=== PATIENT | male | born 1955 | race Caucasian/White ===

== ENCOUNTER 2021-10-03 12:55 | Emergency (ER) | payer OTHER, SELFPAY ==
--- NOTE | 2021-10-03 13:56 | PC.NURSE ---
pt eye feels completely fine now, signed refusal, left ER ambulatory, encouraged to come back as needed
== END 2021-10-03 14:05 | disposition left against medical advice (07) ==
DX: Z53.29 Procedure and treatment not carried out because of patient's decision for other reasons (principal)
CPT/HCPCS: 99199

== ENCOUNTER 2022-06-30 21:08 | Observation (INO) | payer MEDICARE, SELFPAY ==
[2022-06-30] VITALS (8 sets, daily range): BP systolic 131–169; BP diastolic 67–99; PULSE 69–84; RESP 18; TEMP 36.9; O2SAT 88–97; BMI 29.3
--- NOTE | 2022-06-30 21:51 | CRLHL7_ITS ---
For Patients: As a result of the Cures Act, medical imaging exams and procedure reports are released immediately into your electronic medical record. You may view this report before your referring provider. If you have questions, please contact your health care provider. INDICATION: Right upper quadrant pain, history gallbladder disease TECHNIQUE: Ultrasound abdomen limited. Sonographic images of the gallbladder and biliary tree were obtained using funk-scale and color Doppler images. COMPARISON: 06/09/2020 FINDINGS: The sensitivity and specificity of the exam are moderately limited by the patient`s body habitus and bowel gas. Liver: Visualization of the liver is limited by overlying bowel gas. Gallbladder: The neck of the gallbladder is not well demonstrated. No gallstones or sludge seen in the contracted lumen. The gallbladder wall is normal in appearance. No pericholecystic fluid is present. A sonographic Harris sign was reported. Common bile duct: 5 mm. No intrahepatic biliary ductal dilatation seen. Vascular: The aorta and IVC are not well visualized. The visualized portal vein is patent with normal anterograde flow. Right kidney: 10.4 cm. The pancreas is obscured by overlying bowel gas. IMPRESSION: 1. The gallbladder is contracted in appearance from recent meal. Dictated by Fish Quiroz MD @ 06/30/2022 11:29:23 PM Dictated by: Fish Quiroz MD @ 06/30/2022 23:30:18 (Electronically Signed)
[2022-06-30] MEDS: ONDANSETRON 2 MG/ML inj 4 MG IVP (22:09)
[2022-06-30] MEDS: HYDROmorphone 0.5 mg/0.5 ml inj IVP (22:09)
--- NOTE | 2022-06-30 22:17 | ED_ITS ---
HPI - General Adult General Chief complaint: Chest Pain Stated complaint: Chest pain Time Seen by Provider: 06/30/22 21:14 Source: patient Mode of arrival: ambulatory Limitations: no limitations History of Present Illness HPI narrative: 67-year-old male with no prior cardiac history presents the emergency department with epigastric area pain radiating up into the chest and back for the past 2 hours. Similar episode 4-6 years ago when he was told he had gallbladder disease. Thankfully he did not have any further episodes after that spell and never needed his gallbladder removed. Pain started at rest, comes in intense painful waves that last several minutes. It is accompanied by sweats. No palpitations, dizziness or dyspnea. There has been no vomiting but he does feel a little nauseated. He has no blood in his stools. He reports that he has had colonoscopies in the past and these are up-to-date no prior endoscopy. No prior history of GI surgeries. Has not tried any pain medication prior to coming to ED. I saw patient socially this morning at locally [employer] festivities and and he was well. He does not take any anticoagulants. He reports no recent changes in his medication. I have cared for him in the hospital in the past when he had sepsis secondary to the leg cellulitis. He reports that he has had this 3 times. Past medical history notable for hypertension, 3 prior episodes of sepsis. Home meds are chlorthalidone and losartan. No anticoagulants. No known drug allergies. Socially he is a local better in, nonsmoker denies significant alcohol intake or pertinent travel. ROS notable for the generalized, GI symptoms as above, otherwise denies times 12 systems. Related Data Home Medications Medication Instructions Recorded Confirmed chlorthalidone 25 mg tablet 25 mg PO DAILY 06/30/22 06/30/22 losartan 25 mg tablet 25 mg PO DAILY 06/30/22 06/30/22 Allergies Allergy/AdvReac Type Severity Reaction Status Date / Time No Known Drug Allergies Allergy Verified 06/30/22 21:18 Exam Const: Vital Signs, click to edit/add: Vital Signs - 24 hr 06/30/22 21:18 06/30/22 22:32 06/30/22 21:08 Temperature 98.5 F Pulse Rate Pulse Rate [Pulse Oximeter] 84 Respiratory Rate 18 Blood Pressure 139/91 H Blood Pressure [Ri ght Upper Arm] 169/99 H Pulse Oximetry 97 94 Oxygen Delivery Me thod Room Air 06/30/22 23:02 06/30/22 23:24 06/30/22 23:30 Temperature Pulse Rate 70 71 Pulse Rate [Pulse Oximeter] Respiratory Rate Blood Pressure 131/67 Blood Pressure [Ri ght Upper Arm] Pulse Oximetry 91 89 Oxygen Delivery Me thod 06/30/22 23:32 06/30/22 23:45 07/01/22 00:00 Temperature Pulse Rate 69 75 66 Pulse Rate [Pulse Oximeter] Respiratory Rate Blood Pressure 136/68 Blood Pressure [Ri ght Upper Arm] Pulse Oximetry 88 91 89 Oxygen Delivery Me thod 07/01/22 00:02 07/01/22 00:02 07/01/22 00:15 Temperature Pulse Rate 77 77 67 Pulse Rate [Pulse Oximeter] Respiratory Rate Blood Pressure 133/70 133/70 Blood Pressure [Ri ght Upper Arm] Pulse Oximetry 89 89 90 Oxygen Delivery Me thod Documenting provider has reviewed patient's vital signs: yes Common normals: no apparent distress General appearance: cooperative and well kempt Other: Appears uncomfortable, in pain. Normal mental status. HENMT: Common normals: normocephalic Head and scalp: normocephalic Face and sinus: normal facial exam Mouth: oral and palatal mucosa normal Throat: posterior oropharynx normal Eye: Common normals: conjunctivae normal General eye: normal appearance of both eyes Conjunctiva: conjunctiva(e) normal Neck & C-Spine: Common normals: no lymphadenopathy Chest: Common normals: palpation of chest normal Resp: Common normals: normal respiratory effort, no use of accessory muscles and clear to auscultation bilaterally Effort & inspection: able to speak in complete sentences Auscultation: clear to auscultation bilaterally Cardio: Common normals: regular rate, regular rhythm, S1 normal heart sound, S2 normal heart sound and no murmurs Rate: regular rate Rhythm: regular rhythm Heart sounds: S1 normal and S2 normal GI: Other: Abdomen slightly overweight but soft. Nondistended. Bowel sounds are normoactive in all 4 quadrants. Liver and spleen are not enlarged, no masses or hernia. He is tender to the epigastrium and under the right rib margin. No rebound tenderness or guarding. Extremity: Other: 2+ edema bilaterally. No stasis ulcers. Neuro: Speech: speech normal Motor exam: no tremor noted and no movement abnormalities noted Psych: Appearance: well kempt Activity/motor behavior: appropriate eye contact Thought content: normal thought content Insight: insight good Judgement: judgment good Skin: Common normals: no rashes or lesions noted General skin exam: no rashes or lesions noted Course Vital Signs Vital signs: Initial Vital Signs Respiratory Effort Normal, Spontaneous 06/30/22 21:08 Pulse Oximetry 94 06/30/22 21:08 Vital Signs Pulse Oximetry 94 06/30/22 21:08 Temperature 98.5 F 06/30/22 21:18 Pulse Rate 67 07/01/22 00:15 Respiratory Rate 18 06/30/22 21:18 Blood Pressure 133/70 07/01/22 00:02 Pulse Oximetry 90 07/01/22 00:15 Oxygen Delivery Method Room Air 06/30/22 21:18 Medical Decision Making MDM Narrative Medical decision making narrative: Differential diagnosis including cardiac disease, GERD, enteritis, more likely gallbladder disease. Cannot exclude esophagitis, pulmonary embolism, musculoskeletal etiology amongst others. I would like to start with an EKG, troponins, court recording monitor. Basic labs to look for gallbladder disease, pancreatitis, infection and inflammatory markers. Right upper quadrant ultrasound. Will be given Zofran and Dilaudid for pain and reassess. Update: Labs are reassuring. Abdominal ultrasound was unfortunately poor quality. It does show that though gallbladder wall is a little thickened but in the setting of it also being contracted, this is difficult to interpret. Lots of overlying bowel gas obscures good view of remaining structures. We elect to perform a CT. This does show some nonspecific inflammation. Patient is still having spasm right upper quadrant pain which is significantly lessened by the dilaudid. He has had no vomiting. Because of his degree of pain and persistence of symptoms without obvious etiology, I am recommending observation. Consider repeat ultrasound imaging in 6-8 hours if pain is not improved. Did not consult surgery get as no clear surgical indications at this time. Will defer to hospitalist team for further workup if patient fails to have improvement in symptoms. Repeat exam shows that patient remains tender with no guarding. Lab Data Lab results reviewed: Yes I reviewed the patient's lab results Lab results narrative: All very reassuring Labs: Lab Results 06/30/22 Range/Units 22:00 WBC 6.45 (4.50-11.00) K/uL RBC 4.51 (4.30-5.90) m/uL Hgb 14.5 (13.5-17.5) gm/dL Hct 42.1 (37.0-53.0) % MCV 93 (80-100) fL MCH 32 (26-34) pg MCHC 34 (32-36) gm/dL RDW Coeff of Karen 12.7 (11.5-15.5) % Plt Count 253 (140-440) K/uL Neut % (Auto) 54.4 (42.0-72.0) % Lymph % (Auto) 33.6 (20-44) % [place] % (Auto) 10.1 (0.0-11.0) % Eos % (Auto) 1.4 (0.0-7.0) % Baso % (Auto) 0.3 (0.0-3.0) % Neut # (Auto) 3.51 (1.7-7.0) K/uL Lymph # (Auto) 2.17 (0.90-2.90) K/uL [place] # (Auto) 0.70 (0.00-0.90) K/UL Eos # (Auto) 0.09 (0.00-0.50) K/uL Baso # (Auto) 0.02 (0.00-0.30) K/uL Sodium 136 (135-149) mmol/L Potassium 3.6 (3.6-5.1) mmol/L Chloride 105 (96-114) mmol/L Carbon Dioxide 23 (20-32) mmol/L BUN 13 (7-30) mg/dL Creatinine 1.0 (0.5-1.5) mg/dL Estimated Creat Clear 77.39 Estimated GFR 83 ml/min Glucose 128 H (60-115) mg/dL Calcium 8.2 L (8.4-10.6) mg/dL Total Bilirubin 0.4 (0.1-1.5) mg/dL Direct Bilirubin 0.2 (0.0-0.5) mg/dL AST 23 (12-35) U/L ALT 24 (4-50) U/L Alkaline Phosphatase 75 (40-150) U/L Troponin I 0.01 (0.01-0.04) ng/mL C-Reactive Protein 0.6 (0.5-1.0) mg/dL Total Protein 7.2 (6.0-8.3) g/dL Albumin 3.7 (3.3-5.0) g/dL Lipase 87 (23-300) U/L POC Troponin I 0.01 (0.01-0.04) ng/ml Imaging Data Abdominal ultrasound: Attestation: I have reviewed the pertinent imaging results. My impression: Unfortunately very poor quality despite good knock up assembler technique. Lots of overlying gas. Gallbladder is really contracted and not sure that this accurately estimates his wall thickness. Because of this I elect to do a CT. Radiologist's impression: IMPRESSION: 1. The gallbladder is contracted in appearance from recent meal. CT scan - abdomen: Attestation: I have reviewed the pertinent imaging results. Radiologist's impression: IMPRESSIONS: 1. Smooth interlobular septal thickening is present in both lung bases and likely due to basilar interstitial edema. 2. Mild ground-glass infiltration of the mesenteric root is present without significant interval change. This is nonspecific and can be seen with edema, mesenteric panniculitis, or prior treated lymphoma. Clinical correlation is needed. ECG Data Attestation: I personally reviewed and interpreted this ECG as follows: Prior ECG tracings: available for review (Comparison 10/06/2018) Interpretation: Sinus rhythm with a rate of 91 with an incomplete right bundle-branch block is unchanged from 2019. Essentially normal axis with 1 PVC present. No obvious signs of ischemia. Discharge Plan Discharge Prescriptions: No Action chlorthalidone 25 mg tablet 25 mg PO DAILY losartan 25 mg tablet 25 mg PO DAILY Follow Up/Referrals: Provider,Not a Local [Primary Care Provider] -
[2022-06-30 22:20] LABS: Basophils Absolute Auto 0.02 K/uL (0.00-0.30); Basophils Percent Auto 0.3 % (0.0-3.0); Eosinophils Absolute Auto 0.09 K/uL (0.00-0.50); Eosinophils Percent Auto 1.4 % (0.0-7.0); Hematocrit 42.1 % (37.0-53.0); Hemoglobin* 14.5 gm/dL (13.5-17.5); Immature Granulocytes Abs Auto 0.01 K/uL (0.00-0.30); Immature Granulocytes Pct Auto 0.2 %; Lymphocytes Absolute Auto 2.17 K/uL (0.90-2.90); Lymphocytes Percent Auto 33.6 % (20-44); Mean Corpuscular HGB Conc 34 gm/dL (32-36); Mean Corpuscular Hemoglobin 32 pg (26-34); Mean Corpuscular Volume 93 fL (80-100); Monocytes Percent Auto 10.1 % (0.0-11.0); Neutrophils Absolute Auto 3.51 K/uL (1.7-7.0); Neutrophils Percent Auto 54.4 % (42.0-72.0); Platelet Count* 253 K/uL (140-440); RDW Coefficient of Variation % 12.7 % (11.5-15.5); Red Blood Count 4.51 m/uL (4.30-5.90); White Blood Count* 6.45 K/uL (4.50-11.00)
[2022-06-30 22:24] LABS: Slide Review Reflex No
[2022-06-30 22:29] LABS: Troponin, Point-of-Care* 0.01 ng/ml (0.01-0.04)
[2022-06-30 22:34] LABS: Albumin* 3.7 g/dL (3.3-5.0); Chloride* 105 mmol/L (96-114)
[2022-06-30 22:35] LABS: Potassium* 3.6 mmol/L (3.6-5.1); Sodium* 136 mmol/L (135-149)
[2022-06-30 22:37] LABS: Carbon Dioxide* 23 mmol/L (20-32); Est. Creatinine Clearance* 77.39; Estimated Glomerular Filt Rate 83 ml/min
[2022-06-30 22:38] LABS: Alanine Aminotransferase* 24 U/L (4-50); Alkaline Phosphatase* 75 U/L (40-150); Aspartate Amino Transferase* 23 U/L (12-35); Bilirubin Direct* 0.2 mg/dL (0.0-0.5); Bilirubin Total* 0.4 mg/dL (0.1-1.5); Blood Urea Nitrogen* 13 mg/dL (7-30); Calcium* 8.2 mg/dL (8.4-10.6); Glucose* 128 mg/dL (60-115); Lipase* 87 U/L (23-300); Total Protein* 7.2 g/dL (6.0-8.3)
[2022-06-30 22:41] LABS: C Reactive Protein* 0.6 mg/dL (0.5-1.0)
[2022-06-30 22:49] LABS: Troponin I* 0.01 ng/mL (0.01-0.04)
--- NOTE | 2022-06-30 22:49 | CRLHL7_ITS ---
For Patients: As a result of the Century Cures Act, medical imaging exams and procedure reports are released immediately into your electronic medical record. You may view this report before your referring provider. If you have questions, please contact your health care provider. INDICATION: Upper abdominal, lower chest pain TECHNIQUE: CT chest, abdomen, and pelvis with i.v. contrast during the venous phase. Coronal and sagittal reformats were obtained. CONTRAST: 100 mL Isovue 370 COMPARISON: 01/23/2017, 08/09/2020 FINDINGS: CHEST: Cardiovascular: The heart has an unremarkable appearance and size. Moderate calcifications of the mitral valve annulus are present. This can be associated with coronary artery disease. The pulmonary arteries are unremarkable in appearance. No sign of aneurysm or dissection in the thoracic aorta. Mediastinum: No mass or adenopathy seen. Lung: Smooth interlobular septal thickening is present in both lung bases and likely due to basilar interstitial edema. Pleura and pericardium: No sign of pleural effusion seen. No significant pericardial effusion is present. Chest wall and axilla: No mass or adenopathy seen. Bone: Unremarkable for age. No acute osseous injuries seen. ABDOMEN/PELVIS: Liver: Unremarkable. Spleen: Unremarkable. Pancreas: Unremarkable. Gallbladder: Unremarkable. Kidney: Unremarkable. No kidney or ureteral stones or obstruction seen. Adrenal: Unremarkable. Bowel: Fundoplication surgery is noted at the GE junction. The appendix is normal in appearance and size. Vascular: Unremarkable. Lymph: Small mesenteric lymph nodes are present measuring up to 7 mm. Peritoneum: Unremarkable. Mild ground-glass infiltration of the mesenteric root is present without significant interval change. No pneumoperitoneum is seen. No significant ascites is noted. Pelvis: Unremarkable. Soft tissue: Unremarkable. Bone: Unremarkable for age. No acute osseous injuries seen. IMPRESSIONS: 1. Smooth interlobular septal thickening is present in both lung bases and likely due to basilar interstitial edema. 2. Mild ground-glass infiltration of the mesenteric root is present without significant interval change. This is nonspecific and can be seen with edema, mesenteric panniculitis, or prior treated lymphoma. Clinical correlation is needed. Dictated by Fish Quiroz MD @ 07/01/2022 12:01:52 AM Please note that all CT scans at this facility use dose modulation, iterative reconstruction, and/or weight-based dosing when appropriate to reduce radiation dose to as low as reasonably achievable. Dictated by: Fish Quiroz MD @ 07/01/2022 00:01:58 (Electronically Signed)
[2022-07-01] VITALS (12 sets, daily range): BP systolic 126–157; BP diastolic 62–86; PULSE 62–79; RESP 16; TEMP 36.6–36.7; O2SAT 89–97; BMI 32.6
[2022-07-01 01:09] LABS: SARS PCR* Negative SARS-CoV-2 (Negative)
--- NOTE | 2022-07-01 02:11 | P.IMCN_ITS ---
Date of Consult Consult date: 07/01/22 Primary Care Provider: Not a Local Provider Consult Narrative N[facility]ative[facility] AD[facility] SU[facility] NOTE eHospitalist was contacted by Dr. Price with request of admission support. Chief complaint: Chest pain HPI: The patient reports that about 6 years ago he had chest pain and was evaluated in the ED and it turned out that it was a gallbladder issue. He was told that if he continued to have problem he would need to have his gallbladder removed. However he never had any other problems until today when he presented with a similar type pain. He describes this chest pain however with palpation of his abdomen he has right upper quadrant pain. He states the pain felt like something was on my chest and it feels just as the pain he had 6 years ago. It actually was better if he stood up and sitting down made the pain worse. It was severe resulting in diaphoresis because of the degree of pain. Review of systems other than mentioned above is negative. Review of Systems Status of ROS: Reports: 10 or more systems reviewed and unremarkable except as noted in History and below PFSH PFS Social History Highest level of school completed/degree received: some college, no degree Smoking Status: Never smoker How often do you have a drink containing alcohol: 4 or more times a week Alcohol type: beer Alcohol type details: 1 case a beer a week How many standard drinks containing alcohol do you have on a typical day: 3 or 4 How often do you have six or more drinks on one occasion: Never AUDIT-C Alcohol total score: 5 Non-prescribed substance use: denies use Meds Home Medications and Allergies Home Medications Medication Instructions Recorded Confirmed Type chlorthalidone 25 mg tablet 25 mg PO DAILY 06/30/22 06/30/22 History losartan 25 mg tablet 25 mg PO DAILY 06/30/22 06/30/22 History Allergies Allergy/AdvReac Type Severity Reaction Status Date / Time No Known Drug Allergies Allergy Verified 06/30/22 21:18 Exam Narrative: Exam Narrative: Exam (performed via interactive video with assistance of bedside nurse): General: Alert, cooperative, no acute distress HEENT: Oral mucosa pink and moist without erythema, dentures Lungs: Clear to auscultation bilaterally without crackle or wheeze CV: Regular rate and rhythm without loud murmur rub or gallop Abd: Does complain of pain with palpation in right upper quadrant done by bedside nurse Ext: 1-2+ bilateral pedal edema Skin: No rashes, bruises or lesions appreciated on gross visualization of exposed skin Neuro: Alert, oriented x 3. CN III -VII, XI, XII grossly intact, moves all extremities without any significant focal deficit appreciated by nurse Const: Vital Signs, click to edit/add: Vital Signs - 24 hr 06/30/22 21:18 06/30/22 22:32 06/30/22 21:08 Temperature 98.5 F Pulse Rate Pulse Rate [Pulse Oximeter] 84 Respiratory Rate 18 Blood Pressure 139/91 H Blood Pressure [Le ft Arm] Blood Pressure [Ri ght Upper Arm] 169/99 H Pulse Oximetry 97 94 Oxygen Delivery Me thod Room Air 06/30/22 23:02 06/30/22 23:24 06/30/22 23:30 Temperature Pulse Rate 70 71 Pulse Rate [Pulse Oximeter] Respiratory Rate Blood Pressure 131/67 Blood Pressure [Le ft Arm] Blood Pressure [Ri ght Upper Arm] Pulse Oximetry 91 89 Oxygen Delivery Me thod 06/30/22 23:32 06/30/22 23:45 07/01/22 00:00 Temperature Pulse Rate 69 75 66 Pulse Rate [Pulse Oximeter] Respiratory Rate Blood Pressure 136/68 Blood Pressure [Le ft Arm] Blood Pressure [Ri ght Upper Arm] Pulse Oximetry 88 91 89 Oxygen Delivery Me thod 07/01/22 00:02 07/01/22 00:02 07/01/22 00:15 Temperature Pulse Rate 77 77 67 Pulse Rate [Pulse Oximeter] Respiratory Rate Blood Pressure 133/70 133/70 Blood Pressure [Le ft Arm] Blood Pressure [Ri ght Upper Arm] Pulse Oximetry 89 89 90 Oxygen Delivery Me thod 07/01/22 01:12 07/01/22 00:34 07/01/22 01:02 Temperature 98.0 F Pulse Rate 79 75 Pulse Rate [Pulse Oximeter] 74 Respiratory Rate 16 16 16 Blood Pressure 154/73 H 126/62 Blood Pressure [Le ft Arm] Blood Pressure [Ri ght Upper Arm] 126/62 Pulse Oximetry 97 94 89 Oxygen Delivery Me thod Room Air 07/01/22 01:22 07/01/22 01:32 07/01/22 01:32 Temperature 98.0 F 97.8 F Pulse Rate Pulse Rate [Pulse Oximeter] 74 Respiratory Rate 16 16 16 Blood Pressure Blood Pressure [Le ft Arm] 157/77 H Blood Pressure [Ri ght Upper Arm] 126/62 Pulse Oximetry 93 93 Oxygen Delivery Me thod Room Air Room Air Labs Labs: Short CBC 06/30/22 Range/Units 22:00 WBC 6.45 (4.50-11.00) K/uL Hgb 14.5 (13.5-17.5) gm/dL Hct 42.1 (37.0-53.0) % Plt Count 253 (140-440) K/uL BMP 06/30/22 22:00 Sodium 136 Potassium 3.6 Chloride 105 Carbon Dioxide 23 BUN 13 Creatinine 1.0 Glucose 128 H Calcium 8.2 L Cardiac Enzymes 06/30/22 Range/Units 22:00 Troponin I 0.01 (0.01-0.04) ng/mL Liver Function 06/30/22 Range/Units 22:00 Total Bilirubin 0.4 (0.1-1.5) mg/dL Direct Bilirubin 0.2 (0.0-0.5) mg/dL AST 23 (12-35) U/L ALT 24 (4-50) U/L Alkaline Phosphatase 75 (40-150) U/L Albumin 3.7 (3.3-5.0) g/dL Assessment and Plan Assessment and plan (1) Biliary colic: Status: Acute Plan Recent lab/abdominal ultrasound/CT scan of abdomen pelvis: Reviewed see EMR for details EKG: Per my interpretation showed sinus rhythm Assessment and Plan: 1. Right upper quadrant pain-concern for biliary colic versus cholecystitis. Keep n.p.o. for now, pain control with narcotics. Will leave for rounding provider to decide whether right upper quadrant ultrasound should be repeated since this study was limited in its assessment. 2. Hypertension-continue losartan. While n.p.o. giving IV fluids however consi naveed the addition of Lasix instead of chlorthalidone once oral intake resumed, given the extent of lower extremity edema. 3. DVT prophylaxis-Lovenox 4. CODE STATUS DNR/DNI discussed with patient Chart review was performed as well as evaluation of the patient via video. Thank you for involving ehospitalist. Please contact [phone] if further assistance is needed.
[2022-07-01] MEDS: 0.9 % SODIUM CHLORIDE 1000 ml 1,000 ML 125 ML IV ×2 (02:53→10:08)
--- NOTE | 2022-07-01 06:40 | PC.NURSE ---
pt to floor at 0115. Indep in room. NPO. Pleasant and cooperative. Pt states his pain in his RUQ feels like a constant pressure and almost gives him the urge to have to cough. Tenderness in RUQ. 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 VSS. Tele = NSR.
[2022-07-01 07:30] LABS: Basophils Absolute Auto 0.02 K/uL (0.00-0.30); Basophils Percent Auto 0.3 % (0.0-3.0); Eosinophils Absolute Auto 0.03 K/uL (0.00-0.50); Eosinophils Percent Auto 0.4 % (0.0-7.0); Hematocrit 43.5 % (37.0-53.0); Hemoglobin* 14.8 gm/dL (13.5-17.5); Immature Granulocytes Abs Auto 0.01 K/uL (0.00-0.30); Immature Granulocytes Pct Auto 0.1 %; Lymphocytes Absolute Auto 2.12 K/uL (0.90-2.90); Mean Corpuscular HGB Conc 34 gm/dL (32-36); Mean Corpuscular Hemoglobin 32 pg (26-34); Mean Corpuscular Volume 94 fL (80-100); Monocytes Percent Auto 8.3 % (0.0-11.0); Neutrophils Absolute Auto 4.76 K/uL (1.7-7.0); Neutrophils Percent Auto 62.9 % (42.0-72.0); Platelet Count* 250 K/uL (140-440); RDW Coefficient of Variation % 12.9 % (11.5-15.5); Red Blood Count 4.61 m/uL (4.30-5.90); Slide Review Reflex No; White Blood Count* 7.57 K/uL (4.50-11.00)
--- NOTE | 2022-07-01 08:01 | P.IMHP_ITS ---
Hospitalist- H&P: HPI History of Present Illness Date Seen: 07/01/22 Chief complaint: Chest pain Narrative: Dawson Blanco is a 67 year old male who presented to the ED last night with severe epigastric pain that radiated into his RUQ. He described discomfort like a brick on his chest, accompanied by intermittent diaphoresis. He had no difficulty breathing (although noted feeling more discomfort with breathing while sitting and laying down, felt better when standing), no radiation of pain into left chest. No significant nausea, vomiting, or diarrhea. He had a similar episode years ago, and was told that at some point he would need his gallbladder out. ER course and findings: - reassuring labs, negative troponin. No acute findings on EKG - gallbladder contracted on ultrasound, CT findings below - given patient's discomfort and history, he was admitted by [facility]-hospitalist overnight, kept NPO, and plan was to repeat ultrasound this morning When I see patient this morning, he continues to have pain in his epigastric region and right upper quadrant, intermittent in improved from admission. He has a mild cough but no other breathing complaints. His LFTs this morning remain normal, his troponin is 2.78. [facility] Medical History (Updated 07/01/22 @ 12:27 by Radha Giron MD) Essential hypertension ?I10 - Essential (primary) hypertension (ICD-10) History of DVT (deep vein thrombosis) ?Z86.718 - Personal history of other venous thrombosis and embolism (ICD-10) Hyperlipidemia ?E78.5 - Hyperlipidemia, unspecified (ICD-10) Surgical History (Updated 07/01/22 @ 12:22 by Radha Giron MD) History of total knee arthroplasty ?Z96.659 - Presence of unspecified artificial knee joint (ICD-10) Social History (Updated 07/01/22 @ 12:23 by Radha Giron MD) Narrative: Patient lives on his son Mark's farm and is retired. Mark would be medical decision maker if needed. He requests DNR/DNI status. He is a never smoker, drinks >10 alcoholic beverages per week, primarily on the weekends. No history of withdrawal. Highest level of school completed/degree received: some college, no degree Smoking Status: Never smoker How often do you have a drink containing alcohol: 4 or more times a week Alcohol type: beer Alcohol type details: 1 case a beer a week How many standard drinks containing alcohol do you have on a typical day: 3 or 4 How often do you have six or more drinks on one occasion: Never AUDIT-C Alcohol total score: 5 Non-prescribed substance use: denies use Meds Home Medications and Allergies Home Medications Medication Instructions Recorded Confirmed Type chlorthalidone 25 mg tablet 25 mg PO DAILY 06/30/22 06/30/22 History losartan 25 mg tablet 25 mg PO DAILY 06/30/22 06/30/22 History Allergies Allergy/AdvReac Type Severity Reaction Status Date / Time No Known Drug Allergies Allergy Verified 06/30/22 21:18 Exam Narrative: Exam Narrative: GEN: Alert and oriented, sitting comfortably in bed and nontoxic in appearance HEENT: Normal external ears, EOMIs bilaterally, no scleral icterus CV: RRR, No concerning murmurs, rubs, or gallops R: LCTA bilaterally without concerning wheezing, fine bibasilar crackles Ab: Soft, no significant tenderness to palpation, + Harris's sign Ext: wwp, no concerning edema Skin: No concerning skin lesions or rashes on exposed skin Neuro: Nonfocal Psych: Appropriate Const: Vital Signs, click to edit/add: Vital Signs - 24 hr 06/30/22 21:18 06/30/22 22:32 06/30/22 21:08 Temperature 98.5 F Pulse Rate Pulse Rate [Pulse Oximeter] 84 Respiratory Rate 18 Blood Pressure 139/91 H Blood Pressure [Le ft Arm] Blood Pressure [Ri ght Upper Arm] 169/99 H Pulse Oximetry 97 94 Oxygen Delivery Me thod Room Air 06/30/22 23:02 06/30/22 23:24 06/30/22 23:30 Temperature Pulse Rate 70 71 Pulse Rate [Pulse Oximeter] Respiratory Rate Blood Pressure 131/67 Blood Pressure [Le ft Arm] Blood Pressure [Ri ght Upper Arm] Pulse Oximetry 91 89 Oxygen Delivery Me thod 06/30/22 23:32 06/30/22 23:45 07/01/22 00:00 Temperature Pulse Rate 69 75 66 Pulse Rate [Pulse Oximeter] Respiratory Rate Blood Pressure 136/68 Blood Pressure [Le ft Arm] Blood Pressure [Ri ght Upper Arm] Pulse Oximetry 88 91 89 Oxygen Delivery Fl thod 07/01/22 00:02 07/01/22 00:02 07/01/22 00:15 Temperature Pulse Rate 77 77 67 Pulse Rate [Pulse Oximeter] Respiratory Rate Blood Pressure 133/70 133/70 Blood Pressure [Le ft Arm] Blood Pressure [Ri ght Upper Arm] Pulse Oximetry 89 89 90 Oxygen Delivery Me thod 07/01/22 01:12 07/01/22 00:34 07/01/22 01:02 Temperature 98.0 F Pulse Rate 79 75 Pulse Rate [Pulse Oximeter] 74 Respiratory Rate 16 16 16 Blood Pressure 154/73 H 126/62 Blood Pressure [Le ft Arm] Blood Pressure [Ri ght Upper Arm] 126/62 Pulse Oximetry 97 94 89 Oxygen Delivery Me thod Room Air 07/01/22 01:22 07/01/22 01:32 07/01/22 01:32 Temperature 98.0 F 97.8 F Pulse Rate Pulse Rate [Pulse Oximeter] 74 Respiratory Rate 16 16 16 Blood Pressure Blood Pressure [Le ft Arm] 157/77 H Blood Pressure [Ri ght Upper Arm] 126/62 Pulse Oximetry 93 93 Oxygen Delivery Fl thod Room Air Room Air 07/01/22 03:00 07/01/22 03:03 Temperature Pulse Rate 64 Pulse Rate [Pulse Oximeter] 75 Respiratory Rate 16 Blood Pressure Blood Pressure [Le ft Arm] 140/71 H Blood Pressure [Ri ght Upper Arm] Pulse Oximetry 93 Oxygen Delivery Me thod Room Air Hospitalist - H&P: Result Labs Labs: Short CBC 06/30/22 07/01/22 Range/Units 22:00 07:18 WBC 6.45 7.57 (4.50-11.00) K/uL Hgb 14.5 14.8 (13.5-17.5) gm/dL Hct 42.1 43.5 (37.0-53.0) % Plt Count 253 250 (140-440) K/uL BMP 06/30/22 22:00 Sodium 136 Potassium 3.6 Chloride 105 Carbon Dioxide 23 BUN 13 Creatinine 1.0 Glucose 128 H Calcium 8.2 L Cardiac Enzymes 06/30/22 Range/Units 22:00 Troponin I 0.01 (0.01-0.04) ng/mL Liver Function 06/30/22 Range/Units 22:00 Total Bilirubin 0.4 (0.1-1.5) mg/dL Direct Bilirubin 0.2 (0.0-0.5) mg/dL AST 23 (12-35) U/L ALT 24 (4-50) U/L Alkaline Phosphatase 75 (40-150) U/L Albumin 3.7 (3.3-5.0) g/dL INDICATION: Upper abdominal, lower chest pain TECHNIQUE: CT chest, abdomen, and pelvis with i.v. contrast during the venous phase. Coronal and sagittal reformats were obtained. CONTRAST: 100 mL Isovue 370 COMPARISON: 01/23/2017, 08/09/2020 FINDINGS: CHEST: Cardiovascular: The heart has an unremarkable appearance and size. Moderate calcifications of the mitral valve annulus are present. This can be associated with coronary artery disease. The pulmonary arteries are unremarkable in appearance. No sign of aneurysm or dissection in the thoracic aorta. Mediastinum: No mass or adenopathy seen. Lung: Smooth interlobular septal thickening is present in both lung bases and likely due to basilar interstitial edema. Pleura and pericardium: No sign of pleural effusion seen. No significant pericardial effusion is present. Chest wall and axilla: No mass or adenopathy seen. Bone: Unremarkable for age. No acute osseous injuries seen. ABDOMEN/PELVIS: Liver: Unremarkable. Spleen: Unremarkable. Pancreas: Unremarkable. Gallbladder: Unremarkable. Kidney: Unremarkable. No kidney or ureteral stones or obstruction seen. Adrenal: Unremarkable. Bowel: Fundoplication surgery is noted at the GE junction. The appendix is normal in appearance and size. Vascular: Unremarkable. Lymph: Small mesenteric lymph nodes are present measuring up to 7 mm. Peritoneum: Unremarkable. Mild ground-glass infiltration of the mesenteric root is present without significant interval change. No pneumoperitoneum is seen. No significant ascites is noted. Pelvis: Unremarkable. Soft tissue: Unremarkable. Bone: Unremarkable for age. No acute osseous injuries seen. IMPRESSIONS: 1. Smooth interlobular septal thickening is present in both lung bases and likely due to basilar interstitial edema. 2. Mild ground-glass infiltration of the mesenteric root is present without significant interval change. This is nonspecific and can be seen with edema, mesenteric panniculitis, or prior treated lymphoma. Clinical correlation is needed. Dictated by Fish Quiroz MD @ 07/01/2022 12:01:52 AM ULTRAOUND COMPARISON: 06/09/2020 FINDINGS: The sensitivity and specificity of the exam are moderately limited by the patient`s body habitus and bowel gas. Liver: Visualization of the liver is limited by overlying bowel gas. Gallbladder: The neck of the gallbladder is not well demonstrated. No gallstones or sludge seen in the contracted lumen. The gallbladder wall is normal in appearance. No pericholecystic fluid is present. A sonographic Harris sign was reported. Common bile duct: 5 mm. No intrahepatic biliary ductal dilatation seen. Vascular: The aorta and IVC are not well visualized. The visualized portal vein is patent with normal anterograde flow. Right kidney: 10.4 cm. The pancreas is obscured by overlying bowel gas. IMPRESSION: 1. The gallbladder is contracted in appearance from recent meal. Dictated by Fish Quiroz MD @ 06/30/2022 11:29:23 PM Assessment and Plan Assessment and plan (1) Elevated troponin: Problem comment: - significant elevation from admission - repeat EKG obtained this morning; no significant ST elevation, mild ST depressions in V4 through V6 - given patient's symptomatology, history recommend transfer to tertiary care center with Cardiology capabilities. Patient is agreeable - discussed the case with Dr. De La Garza, hospitalist at [place], who agrees to accept patient in transfer Status: Acute (2) Biliary colic: Problem comment: - likely still contributing to symptoms; LFTs this morning are still wnl and we were unable to repeat ultrasound given need for transfer - outpatient f/u vs definitive management at [place] Status: Acute (3) Essential hypertension: Status: Acute (4) Hyperlipidemia: Status: Acute Plan - transferred to [facility] by ALS ambulance 07/01 - Please note that this document serves as H&P and discharge summary
[2022-07-01 08:04] LABS: Alanine Aminotransferase* 25 U/L (4-50); Albumin* 3.7 g/dL (3.3-5.0); Alkaline Phosphatase* 76 U/L (40-150); Aspartate Amino Transferase* 49 U/L (12-35); Bilirubin Direct* 0.2 mg/dL (0.0-0.5); Bilirubin Total* 0.8 mg/dL (0.1-1.5); Total Protein* 7.1 g/dL (6.0-8.3)
[2022-07-01 08:06] LABS: Troponin I* 2.78 ng/mL (0.01-0.04)
[2022-07-01] MEDS: LOSARTAN POTASSIUM 50 MG TABLET 25 MG PO (09:24)
[2022-07-01] MEDS: ASPIRIN EC 325 MG TABLET PO (09:24)
[2022-07-01] MEDS: SODIUM CHLORIDE 0.9 % (FLUSH) 10 ML SYRINGE 5 ML IVF (09:26)
--- NOTE | 2022-07-01 11:17 | PC.NURSE ---
Discharge/transferred: Pt. alert and oriented x4, rates pain 3/10. Pt. denies N/V. C/O a new dry cough developing overnight. Nurse encouraged pt. to use IS. Pt. on RA, tele shows NSR. Pt. has elevated trops. EKG done Stat per MD. Giron. Transfer to [facility] was initiated and bed request was accepted. Pt. was discharged via non-emergent transport to [facility] at 1054, IV patent. Nurse to nurse given to Bertin Jimenez. Pt. Family at bedside and updated on reason for transfer and they verbalized understanding. Pt. belongings list signed and transfer papers signed by pt.
== END 2022-07-01 10:54 | disposition short-term general hospital (02) ==
LOC: ED 07-01 00:47 → MEDSURG 07-01 01:12
PROVIDERS: Internal Medicine; Admitting Provider Family Medicine; Emergency Provider Family Medicine; Visit Provider Family Medicine
DX: I49.8 Other specified cardiac arrhythmias; I10 Essential (primary) hypertension; R60.0 Localized edema; R05.9 Cough, unspecified; R10.11 Right upper quadrant pain; R10.13 Epigastric pain; R11.0 Nausea; I45.10 Unspecified right bundle-branch block; R61 Generalized hyperhidrosis; Z96.659 Presence of unspecified artificial knee joint; Z86.718 Personal history of other venous thrombosis and embolism; Z66 Do not resuscitate
CPT/HCPCS: 36415; 74177; 76705; 80048; 80053; 80076; 83690; 84484; 85025; 86140; 87635; 93005; 94761; 96361; 96374; 96375; 99199; 99283; 99285; G0378; A9270; J1170; J2405; J7030; Q9967

== ENCOUNTER 2022-07-01 10:50 | Outpatient (CLI) | payer MEDICARE, SELFPAY | END 2022-07-01 10:51 | disposition home or self-care (01) | LOC: AMB 07-02 10:31 | PROVIDERS: Visit Provider Family Medicine | DX: R77.8 Other specified abnormalities of plasma proteins (principal) | CPT/HCPCS: A0425; A0426 ==

== ENCOUNTER 2023-04-06 17:00 | Observation (INO) | payer MEDICARE, SELFPAY ==
[2023-04-06] VITALS (29 sets, daily range): BP systolic 122–149; BP diastolic 60–83; PULSE 71–86; RESP 20–30; TEMP 36.8–37.8; O2SAT 94–98; BMI 27.7
--- NOTE | 2023-04-06 17:25 | CRLHL7_ITS ---
For Patients: As a result of the Cures Act, medical imaging exams and procedure reports are released immediately into your electronic medical record. You may view this report before your referring provider. If you have questions, please contact your health care provider. INDICATION: Shortness of breath. TECHNIQUE: Chest 2 views. COMPARISON: Chest radiograph 08/09/2020. FINDINGS: Interval postoperative changes in the chest with sternotomy and retained epicardial pacer wires. Small bilateral pleural effusions with bibasilar atelectasis. Interstitial prominence in the lower lungs likely due to edema. No pneumothorax. Mild cardiomegaly with pulmonary vascular congestion. Degenerative changes of the spine. IMPRESSION: Mild cardiomegaly with pulmonary vascular congestion and small bilateral pleural effusions. Dictated by Shamika Martin MD @ 04/06/2023 5:51:06 PM (Electronically Signed)
--- NOTE | 2023-04-06 17:26 | ED_ITS ---
HPI - General Adult General Chief complaint: Chest Pain Stated complaint: possible heart attack, shortness of breath Time Seen by Provider: 04/06/23 17:08 History of Present Illness HPI narrative: This 67-year-old male comes in reporting feeling of short of breath that occurred after midnight last night while in bed. He states that he had some chest discomfort but did not call it chest pain. He did not have any nausea, vomiting, lightheadedness, or diaphoresis. He had a cardiology checkup a few days ago and felt good at that time and everything checked out. Since then he has not been feeling as well. He does report occasional cough. He has not had any fevers. Related Data Home Medications Medication Instructions Recorded Confirmed chlorthalidone 25 mg tablet 25 mg PO DAILY 06/30/22 06/30/22 losartan 25 mg tablet 25 mg PO DAILY 06/30/22 06/30/22 amlodipine 2.5 mg tablet 2.5 mg PO DAILY 04/06/23 04/06/23 furosemide 40 mg tablet 40 mg PO 3XD 04/06/23 04/06/23 metoprolol tartrate 25 mg tablet 37.5 mg PO BID 04/06/23 04/06/23 nitroglycerin 0.4 mg sublingual 0.4 mg sublingual PRN angina 04/06/23 04/06/23 tablet potassium chloride 20 mEq 20 meq PO DAILY 04/06/23 04/06/23 tablet,extended release(part/cryst) rosuvastatin 40 mg tablet 40 mg PO DAILY 04/06/23 04/06/23 Allergies Allergy/AdvReac Type Severity Reaction Status Date / Time No Known Drug Allergies Allergy Verified 06/30/22 21:18 Review of Systems Status of ROS: Reports: 10 or more systems reviewed and unremarkable except as noted in History and below Narrative: Constitutional: No fevers, no weight gain or loss. Eyes: No discharge. No vision changes. HENT: No congestion, no sore throat, no ear pain. Cardiovascular: No palpitations. Respiratory: Episode of feeling short of breath. He reports occasional cough. Gastrointestinal: No abdominal pain, no vomiting, no diarrhea. Genitourinary: No dysuria, no hematuria. Musculoskeletal: Normal range of motion. Increased pedal edema recently. Skin: No rashes, no pruritis. Neurological: No dizziness, weakness, sensory change, speech change. Endo/Heme/Allergies: No bruising or bleeding. No polydipsia. Pysch: no suicidality, no anxiety, no insomnia. All other systems reviewed and are negative. [facility] Medical History (Updated 04/06/23 @ 19:32 by Bhavin Montalvo MD) History of DVT (deep vein thrombosis) ?Z86.718 - Personal history of other venous thrombosis and embolism (ICD-10) Essential hypertension ?I10 - Essential (primary) hypertension (ICD-10) Hyperlipidemia ?E78.5 - Hyperlipidemia, unspecified (ICD-10) Surgical History (Updated 07/01/22 @ 12:22 by Radha Giron MD) History of total knee arthroplasty ?Z96.659 - Presence of unspecified artificial knee joint (ICD-10) Social History (Updated 07/01/22 @ 12:23 by Radha Giron MD) Narrative: Patient lives on his son Mark's [place] and is retired. Mark would be medical decision maker if needed. He requests DNR/DNI status. He is a never smoker, drinks >10 alcoholic beverages per week, primarily on the weekends. No history of withdrawal. Highest level of school completed/degree received: some college, no degree Smoking Status: Never smoker Do you use any of these nicotine containing products: None How often do you have a drink containing alcohol: never How many standard drinks containing alcohol do you have on a typical day: 3 or 4 How often do you have six or more drinks on one occasion: Never AUDIT-C Alcohol total score: 1 Non-prescribed substance use: denies use Exam Narrative: Exam Narrative: Constitutional: Well-developed, well-nourished, no acute distress. HEENT: Normocephalic, atraumatic. Neck: Normal range of motion. Nontender. Supple. Heart: Regular. No murmurs. Normal rate. Intact distal pulses. Lungs: Clear to auscultation. No chest discomfort. No wheezes, rhonchi, or rales . Abdomen: Normal bowel sounds. Nontender. No rebound tenderness. Genitalia: Deferred. Back: No midline tenderness. Normal range of motion. Extremities: Normal range of motion. No injury. Moderate bilateral pedal edema. Skin: Intact. No rash. Warm. No erythema or pallor. Neurologic: No altered sensation. No weakness. Alert and oriented. Psychiatric: No suicidality. No anxiety or depression. No insomnia. Nursing notes and vitals signs are reviewed. Const: Vital Signs, click to edit/add: Vital Signs - 24 hr 04/06/23 17:06 04/06/23 17:09 04/06/23 17:10 Temperature 99.3 F Pulse Rate 81 Pulse Rate [Pulse Oximeter] 82 Respiratory Rate 24 Blood Pressure 148/83 H Blood Pressure [Le ft Upper Arm] 148/83 H Pulse Oximetry 97 97 96 Oxygen Delivery Me thod Room Air 04/06/23 17:10 04/06/23 17:26 04/06/23 17:27 Temperature Pulse Rate 85 80 81 Pulse Rate [Pulse Oximeter] Respiratory Rate Blood Pressure 131/67 Blood Pressure [Le ft Upper Arm] Pulse Oximetry 98 96 96 Oxygen Delivery Me thod 04/06/23 17:30 04/06/23 17:31 04/06/23 17:32 Temperature Pulse Rate 78 77 76 Pulse Rate [Pulse Oximeter] Respiratory Rate Blood Pressure 128/63 Blood Pressure [Le ft Upper Arm] Pulse Oximetry 95 96 96 Oxygen Delivery Me thod 04/06/23 17:47 04/06/23 17:49 04/06/23 18:00 Temperature Pulse Rate 84 76 Pulse Rate [Pulse Oximeter] Respiratory Rate 30 H Blood Pressure Blood Pressure [Le ft Upper Arm] Pulse Oximetry 96 97 Oxygen Delivery Me thod 04/06/23 18:01 04/06/23 18:20 04/06/23 18:30 Temperature Pulse Rate 76 82 78 Pulse Rate [Pulse Oximeter] Respiratory Rate Blood Pressure 134/77 Blood Pressure [Le ft Upper Arm] Pulse Oximetry 97 94 97 Oxygen Delivery Me thod 04/06/23 18:35 04/06/23 18:43 04/06/23 18:44 Temperature 100.0 F H Pulse Rate 74 72 Pulse Rate [Pulse Oximeter] Respiratory Rate 24 Blood Pressure 135/61 Blood Pressure [Le ft Upper Arm] Pulse Oximetry 97 98 Oxygen Delivery Me thod 04/06/23 18:45 Temperature Pulse Rate 75 Pulse Rate [Pulse Oximeter] Respiratory Rate Blood Pressure Blood Pressure [Le ft Upper Arm] Pulse Oximetry 97 Oxygen Delivery Me thod Course Vital Signs Vital signs: Initial Vital Signs Temperature 99.3 F 04/06/23 17:06 Temperature Source Temporal Artery Scan 04/06/23 17:06 Pulse Rate 82 04/06/23 17:06 Respiratory Rate 24 04/06/23 17:06 Blood Pressure 148/83 H 04/06/23 17:06 Blood Pressure Mean 104 04/06/23 17:06 Blood Pressure Position Supine 04/06/23 17:06 Pulse Oximetry 97 04/06/23 17:06 Oxygen Delivery Method Room Air 04/06/23 17:06 Vital Signs Temperature 99.3 F 04/06/23 17:06 Pulse Rate 82 04/06/23 17:06 Respiratory Rate 24 04/06/23 17:06 Blood Pressure 148/83 H 04/06/23 17:06 Pulse Oximetry 97 04/06/23 17:06 Oxygen Delivery Method Room Air 04/06/23 17:06 Temperature 100.0 F H 04/06/23 18:43 Pulse Rate 75 04/06/23 18:45 Respiratory Rate 24 04/06/23 18:43 Blood Pressure 135/61 04/06/23 18:44 Pulse Oximetry 97 04/06/23 18:45 Oxygen Delivery Method Room Air 04/06/23 17:06 Medical Decision Making MDM Narrative Medical decision making narrative: This patient comes in reporting some shortness of breath and generalized malaise over for the past few days. The shortness of breath became more notable last night after midnight when in bed. He reports some chest discomfort but states that it is not pain. He arrives with normal vital signs except he does have an increased respiratory rate. He states that he has shortness of breath with any kind of exertion. An IV is established and chest x-ray obtained. lab results returned with reassuring findings of no sign of infection or elevated t roponin level. His B type nitrate peptide is elevated as was his D-dimer. A CT scan with IV contrast is obtained and does not show any sign of pulmonary embolism but there is pleural effusion. I did speak with the surgeon on-call, Dr. Guzman, who stated that it is too small of an effusion to do a thoracentesis. I did speak with the hospitalist business risk consultant, Jenn Nichole, who agreed to his admission overnight into the hospital. He did receive an IV dose of Lasix. This is likely congestive heart failure exacerbation. Lab Data Labs: Lab Results 04/06/23 04/06/23 04/06/23 Range/Units 17:22 17:25 17:40 WBC 10.23 (4.50-11.00) K/uL RBC 4.15 L (4.30-5.90) m/uL Hgb 12.4 L (13.5-17.5) gm/dL Hct 37.4 (37.0-53.0) % MCV 90 (80-100) fL MCH 30 (26-34) pg MCHC 33 (32-36) gm/dL RDW Coeff of Karen 12.7 (11.5-15.5) % Plt Count 293 (140-440) K/uL Neut % (Auto) 76.5 H (42.0-72.0) % Lymph % (Auto) 14.8 L (20-44) % Carlton % (Auto) 7.8 (0.0-11.0) % Eos % (Auto) 0.5 (0.0-7.0) % Baso % (Auto) 0.3 (0.0-3.0) % Neut # (Auto) 7.80 H (1.7-7.0) K/uL Lymph # (Auto) 1.50 (0.90-2.90) K/uL Carlton # (Auto) 0.80 (0.00-0.90) K/UL Eos # (Auto) 0.05 (0.00-0.50) K/uL Baso # (Auto) 0.03 (0.00-0.30) K/uL Abs Immat Gran (auto) 0.01 (0.00-0.30) K/uL Imm/Tot Granulo (auto) 0.1 % D-Dimer Quant (PE/DVT) 2.64 H (0.00-0.50) ug/ml Sodium 135 (135-149) mmol/L Potassium 3.8 (3.6-5.1) mmol/L Chloride 99 (96-114) mmol/L Carbon Dioxide 27 (20-32) mmol/L Anion Gap 9 (7-15) mEq/L BUN 12 (7-30) mg/dL Creatinine 0.8 (0.5-1.5) mg/dL Estimated GFR 98 ml/min Glucose 99 (60-115) mg/dL Calcium 9.1 (8.4-10.6) mg/dL NT-Pro-B Natriuret Pep 2130 pg/mL SARS-CoV-2 (PCR) Negative SARS-CoV-2 (Negative) Influenza Type A (PCR) Negative PCR FLU A (Negative) Influenza Type B (PCR) Negative PCR FLU B (Negative) RSV (PCR) Negative PCR RSV (Negative) POC Troponin I 0.00 L (0.01-0.04) ng/ml Imaging Data Chest x-ray: Radiologist's impression: Mild cardiomegaly with pulmonary vascular congestion and small bilateral pleural effusions CT scan - chest: Radiologist's impression: 1. No pulmonary embolism. 2. Moderate-sized loculated right pleural effusion and small left pleural effusion with associated passive atelectasis. 3. Mild diffuse bronchial wall thickening, compatible with bronchitis. 4. Mild interlobular septal thickening within the apices and lung bases could represent mild pulmonary edema, possibly the basis of heart failure. 5. Enlarged left prevascular and pretracheal lymph nodes, nonspecific, possibly reactive; however, metastatic disease from an unknown primary malignancy cannot be entirely excluded. Recommend attention on follow-up imaging. ECG Data Attestation: I personally reviewed and interpreted this ECG as follows: Interpretation: Normal sinus rhythm. Rate is 80 beats per minute. There are no ST or T-wave abnormalities. Discharge Plan Discharge Clinical Impression: Congestive heart failure Patient Disposition: Admitted As Observation Condition: Unchanged Prescriptions: No Action chlorthalidone 25 mg tablet 25 mg PO DAILY losartan 25 mg tablet 25 mg PO DAILY furosemide 40 mg tablet 40 mg PO 3XD amlodipine 2.5 mg tablet 2.5 mg PO DAILY potassium chloride 20 mEq tablet,ER particles/crystals 20 meq PO DAILY nitroglycerin 0.4 mg tablet, sublingual 0.4 mg sublingual PRN rosuvastatin 40 mg tablet 40 mg PO DAILY metoprolol tartrate 25 mg tablet 37.5 mg PO BID Follow Up/Referrals: Provider,Not a Local [Primary Care Provider] -
[2023-04-06 17:37] LABS: Basophils Absolute Auto 0.03 K/uL (0.00-0.30); Basophils Percent Auto 0.3 % (0.0-3.0); Eosinophils Absolute Auto 0.05 K/uL (0.00-0.50); Eosinophils Percent Auto 0.5 % (0.0-7.0); Hematocrit 37.4 % (37.0-53.0); Hemoglobin* 12.4 gm/dL (13.5-17.5); Immature Granulocytes Abs Auto 0.01 K/uL (0.00-0.30); Immature Granulocytes Pct Auto 0.1 %; Lymphocytes Percent Auto 14.8 % (20-44); Mean Corpuscular HGB Conc 33 gm/dL (32-36); Mean Corpuscular Hemoglobin 30 pg (26-34); Mean Corpuscular Volume 90 fL (80-100); Monocytes Percent Auto 7.8 % (0.0-11.0); Neutrophils Percent Auto 76.5 % (42.0-72.0); Platelet Count* 293 K/uL (140-440); RDW Coefficient of Variation % 12.7 % (11.5-15.5); Red Blood Count 4.15 m/uL (4.30-5.90); White Blood Count* 10.23 K/uL (4.50-11.00)
[2023-04-06 17:40] LABS: Slide Review Reflex No
[2023-04-06 17:52] LABS: Chloride* 99 mmol/L (96-114); Potassium* 3.8 mmol/L (3.6-5.1); Sodium* 135 mmol/L (135-149)
[2023-04-06 17:55] LABS: Anion Gap 9 mEq/L (7-15); Blood Urea Nitrogen* 12 mg/dL (7-30); Carbon Dioxide* 27 mmol/L (20-32); Creatinine* 0.8 mg/dL (0.5-1.5); Estimated Glomerular Filt Rate 98 ml/min
[2023-04-06 17:56] LABS: Calcium* 9.1 mg/dL (8.4-10.6); Glucose* 99 mg/dL (60-115)
[2023-04-06 17:58] LABS: D Dimer Quantitative* 2.64 ug/ml (0.00-0.50)
[2023-04-06 18:03] LABS: PCR FLU A Negative PCR FLU A (Negative); PCR FLU B Negative PCR FLU B (Negative); PCR RSV Negative PCR RSV (Negative); SARS PCR* Negative SARS-CoV-2 (Negative)
--- NOTE | 2023-04-06 18:05 | CRLHL7_ITS ---
For Patients: As a result of the Century Cures Act, medical imaging exams and procedure reports are released immediately into your electronic medical record. You may view this report before your referring provider. If you have questions, please contact your health care provider. INDICATION: Shortness of breath, elevated D-dimer. TECHNIQUE: CT chest PE was acquired with 95 cc Isovue 370 IV contrast. Permanently recorded images are archived. COMPARISON: CT chest, abdomen, and pelvis 08/09/2020. FINDINGS: Heart and vasculature: Contrast opacification of the pulmonary arterial tree is adequate. No sign of pulmonary embolism. Cardiomegaly with left atrial enlargement. Thoracic aorta and pulmonary artery are normal in caliber. Median sternotomy wires with CABG postsurgical changes Lungs and pleura: Right moderate-sized loculated pleural effusion with passive atelectasis of the right lower lobe. Small left pleural effusion with passive atelectasis as well. No pneumothorax. Mild diffuse bronchial wall thickening. Mild interlobular septal thickening within the apices and lung bases. Lymph nodes/mediastinum: Enlarged left prevascular lymph node measuring 1.3 cm In short axis. Enlarged pretracheal lymph node measuring 11 mm in short axis Chest wall: No masses. Thyroid: Unremarkable. Upper abdomen: No acute or significant findings. Bones: Multilevel thoracic spondylosis. No acute findings or aggressive osseous lesion. IMPRESSION: 1. No pulmonary embolism. 2. Moderate-sized loculated right pleural effusion and small left pleural effusion with associated passive atelectasis. 3. Mild diffuse bronchial wall thickening, compatible with bronchitis. 4. Mild interlobular septal thickening within the apices and lung bases could represent mild pulmonary edema, possibly the basis of heart failure. 5. Enlarged left prevascular and pretracheal lymph nodes, nonspecific, possibly reactive; however, metastatic disease from an unknown primary malignancy cannot be entirely excluded. Recommend attention on follow-up imaging. Please note that all CT scans at this facility use dose modulation, iterative reconstruction, and/or weight-based dosing when appropriate to reduce radiation dose to as low as reasonably achievable. Dictated by Erasmo Wong MD @ 04/06/2023 6:46:07 PM (Electronically Signed)
[2023-04-06 18:07] LABS: NT Pro B Type NatriureticPept* 2130 pg/mL
[2023-04-06] MEDS: FUROSEMIDE 10 MG/ML inj 40 MG IVP (19:36)
--- NOTE | 2023-04-06 19:36 | P.IMHP_ITS ---
Hospitalist- H&P: HPI History of Present Illness Date Seen: 04/06/23 Chief complaint: possible heart attack, shortness of breath Narrative: Dawson Blanco is a 67 year old male past medical history significant for degenerative arthritis, hypertension, hyperlipidemia, multi-vessel CAD, NSTEMI s/p CABG x4, is admitted to the medical floor from the ED for further management acute on chronic worsening heart failure with preserved ejection fraction. Patient was seen by his central office worker on 04/02/2023 for outpatient follow-up. Up until this date patient had been feeling quite well, exercising on a treadmill, reporting weight to be stable. He tells me since that visit 4 days ago, things have gone downhill, admitting to slowly increasing shortness of breath. Overnight, he awoke with significant orthopnea and chest discomfort. He called the [facility] nurse line this afternoon and was advised to be seen in the ED. Patient denies headache or dizziness. Denies recent fevers chills or sweats. Has had intermittent coughing since cardiac event in June 2022. No worse in the last few days. Denies any recent nausea, vomiting. No change in stools or urination. Reports a 5 lb weight gain over the last couple of days. Review of Systems Narrative: REVIEW OF SYSTEMS: Complete review of systems performed and negative unless otherwise stated in HPI or below. PFSH ON LICENSE OF [facility] Medical History Pleural effusion ?J90 - Pleural effusion, not elsewhere classified (ICD-10) NSTEMI (non-ST elevated myocardial infarction) ?I21.4 - Non-ST elevation (NSTEMI) myocardial infarction (ICD-10) CAD (coronary artery disease) ?I25.10 - Atherosclerotic heart disease of [place] coronary artery without angina pectoris (ICD-10) History of DVT (deep vein thrombosis) ?Z86.718 - Personal history of other venous thrombosis and embolism (ICD-10) Essential hypertension ?I10 - Essential (primary) hypertension (ICD-10) Hyperlipidemia ?E78.5 - Hyperlipidemia, unspecified (ICD-10) Surgical History History of total knee arthroplasty ?Z96.659 - Presence of unspecified artificial knee joint (ICD-10) Social History Narrative: Patient lives on his son Mark's farm and is retired. Mark would be medical decision maker if needed. He requests DNR/DNI status. He is a never smoker, drinks >10 alcoholic beverages per week, primarily on the weekends. No history of withdrawal. What is your current living situation?: I presently have a place to live Problems where you live: no known problems Problems where you live details: None In the past 12 months, utilities in danger of being shut off: no In past 12 months, lack of transportation kept you from medical appts, meetings, work, or getting things needed for daily living: no In the past 12 mos, have been you worried that your food would run out before you had money to buy more?: never true In the past 12 mos, the food you bought just didn't last and you didn't have money to buy more?: never true Highest level of school completed/degree received: some college, no degree Smoking Status: Never smoker Do you use any of these nicotine containing products: None Second hand tobacco smoke exposure: No How often do you have a drink containing alcohol: never How many standard drinks containing alcohol do you have on a typical day: 3 or 4 How often do you have six or more drinks on one occasion: Never AUDIT-C Alcohol total score: 1 Non-prescribed substance use: denies use Caffeine: Yes (Pepsi) How often does anyone, including family, friends and others, physically hurt you : never How often does anyone, including family, friends and others, insult or talk down to you: never How often does anyone, including family, friends and others, threaten you with harm: never How often does anyone, including family, friends and others, scream or curse at you: never service: No Meds Home Medications and Allergies Home Medications Medication Instructions Recorded Confirmed Type chlorthalidone 25 mg tablet 25 mg PO DAILY 06/30/22 06/30/22 History losartan 25 mg tablet 25 mg PO DAILY 06/30/22 06/30/22 History amlodipine 2.5 mg tablet 2.5 mg PO DAILY 04/06/23 04/06/23 History furosemide 40 mg tablet 40 mg PO 3XD 04/06/23 04/06/23 History metoprolol tartrate 25 mg tablet 37.5 mg PO BID 04/06/23 04/06/23 History nitroglycerin 0.4 mg sublingual 0.4 mg sublingual PRN angina 04/06/23 04/06/23 History tablet potassium chloride 20 mEq 20 meq PO DAILY 04/06/23 04/06/23 History tablet,extended release(part/cryst) rosuvastatin 40 mg tablet 40 mg PO DAILY 04/06/23 04/06/23 History Allergies Allergy/AdvReac Type Severity Reaction Status Date / Time No Known Drug Allergies Allergy Verified 06/30/22 21:18 Exam Narrative: Exam Narrative: PHYSICAL EXAM General: Sitting up in bed, very pleasant, conversant, joking with staff, NAD HEENT: Normocephalic, atraumatic, sclera white, EOMI, oral mucosa moist Cardiovascular: RRR. +3 pitting edema bilaterally Pulmonary: Diffusely diminished without rhonchi, rales, expiratory wheezes. No dyspnea on room air Abdominal: Soft, nondistended, NTTP Neurological: Alert, answering questions appropriately, cranial nerves intact, no focal findings Extremities: No gross joint deformity or swelling. AROMI. Neurovascularly intact Skin: Warm, dry. Const: Vital Signs, click to edit/add: Vital Signs - 24 hr 04/06/23 17:06 04/06/23 17:09 04/06/23 17:10 Temperature 99.3 F Pulse Rate 81 Pulse Rate [Pulse Oximeter] 82 Respiratory Rate 24 Blood Pressure 148/83 H Blood Pressure [Le ft Upper Arm] 148/83 H Pulse Oximetry 97 97 96 Oxygen Delivery Me thod Room Air 04/06/23 17:10 04/06/23 17:26 04/06/23 17:27 Temperature Pulse Rate 85 80 81 Pulse Rate [Pulse Oximeter] Respiratory Rate Blood Pressure 131/67 Blood Pressure [Le ft Upper Arm] Pulse Oximetry 98 96 96 Oxygen Delivery Me thod 04/06/23 17:30 04/06/23 17:31 04/06/23 17:32 Temperature Pulse Rate 78 77 76 Pulse Rate [Pulse Oximeter] Respiratory Rate Blood Pressure 128/63 Blood Pressure [Le ft Upper Arm] Pulse Oximetry 95 96 96 Oxygen Delivery Me thod 04/06/23 17:47 04/06/23 17:49 04/06/23 18:00 Temperature Pulse Rate 84 76 Pulse Rate [Pulse Oximeter] Respiratory Rate 30 H Blood Pressure Blood Pressure [Le ft Upper Arm] Pulse Oximetry 96 [facility] 04[facility] 18:01 04/06/23 18:20 04/06/23 18:30 Temperature Pulse Rate 76 82 78 Pulse Rate [Pulse Oximeter] Respiratory Rate Blood Pressure 134/77 Blood Pressure [Le ft Upper Arm] Pulse Oximetry 97 94 97 Oxygen Delivery [facility] 04/06/23 18:35 04/06/23 18:43 04/06/23 18:44 Temperature 100.0 F H Pulse Rate 74 72 Pulse Rate [Pulse Oximeter] Respiratory Rate 24 Blood Pressure 135/61 Blood Pressure [Le ft Upper Arm] Pulse Oximetry 97 98 [facility] 04/06/23 18:45 Temperature Pulse Rate 75 Pulse Rate [Pulse Oximeter] Respiratory Rate Blood Pressure Blood Pressure [Le ft Upper Arm] Pulse Oximetry 97 Oxygen Delivery [facility] Hospitalist - H&P: Result Labs Labs: Short CBC 04/06/23 Range/Units 17:22 WBC 10.23 (4.50-11.00) K/uL Hgb 12.4 L (13.5-17.5) gm/dL Hct 37.4 (37.0-53.0) % Plt Count 293 (140-440) K/uL BMP 04/06/23 17:22 Sodium 135 Potassium 3.8 Chloride 99 Carbon Dioxide 27 BUN 12 Creatinine 0.8 Glucose 99 Calcium 9.1 ECG Attestation: I personally reviewed and interpreted this ECG as follows: ECG interpretation date: 04/06/23 Interpretation: NSR, ventricular rate 80, QTC 452 Imaging Echo: Attestation: I have reviewed the pertinent imaging results. Radiologist's impression: From 02/15/2023: 1. Normal left ventricular chamber size. Sigmoid basal septal hypertrophy. Normal left ventricular systolic function. No regional wall motion abnormalities. Normal left ventricular wall thickness. Estimated left ventricular ejection fraction is 55-60%. 2. Borderline right ventricular chamber enlargement. Normal right ventricular wall thickness. 3. Moderate mitral annular calcification. Mild mitral inflow obstruction. Mitral valve diastolic mean gradient is 4.5 mmHg (at a HR of 69 bpm). Mild-moderate mitral valve regurgitation. 4. Indeterminate left ventricular diastolic function. 5. Normal inferior vena cava with normal inspiratory collapse consistent with normal right atrial pressure. 6. When compared to the previous echocardiographic report of 09-04-22, there has been no significant change. Estimated EF: 55-60% CT scan - chest: Attestation: I have reviewed the pertinent imaging results. Radiologist's impression: CT chest PE was acquired with 95 cc Isovue 370 IV contrast. Permanently recorded images are archived. COMPARISON: CT chest, abdomen, and pelvis 08/09/2020. FINDINGS: Heart and vasculature: Contrast opacification of the pulmonary arterial tree is adequate. No sign of pulmonary embolism. Cardiomegaly with left atrial enlargement. Thoracic aorta and pulmonary artery are normal in caliber. Median sternotomy wires with CABG postsurgical changes Lungs and pleura: Right moderate-sized loculated pleural effusion with passive atelectasis of the right lower lobe. Small left pleural effusion with passive atelectasis as well. No pneumothorax. Mild diffuse bronchial wall thickening. Mild interlobular septal thickening within the apices and lung bases. Lymph nodes/mediastinum: Enlarged left prevascular lymph node measuring 1.3 cm In short axis. Enlarged pretracheal lymph node measuring 11 mm in short axis Chest wall: No masses. Thyroid: Unremarkable. Upper abdomen: No acute or significant findings. Bones: Multilevel thoracic spondylosis. No acute findings or aggressive osseous lesion. IMPRESSION: 1. No pulmonary embolism. 2. Moderate-sized loculated right pleural effusion and small left pleural effusion with associated passive atelectasis. 3. Mild diffuse bronchial wall thickening, compatible with bronchitis. 4. Mild interlobular septal thickening within the apices and lung bases could represent mild pulmonary edema, possibly the basis of heart failure. 5. Enlarged left prevascular and pretracheal lymph nodes, nonspecific, possibly reactive; however, metastatic disease from an unknown primary malignancy cannot be entirely excluded. Recommend attention on follow-up imaging. Chest x-ray: Attestation: I have reviewed the pertinent imaging results. Radiologist's impression: Chest radiograph 08/09/2020. FINDINGS: Interval postoperative changes in the chest with sternotomy and retained epicardial pacer wires. Small bilateral pleural effusions with bibasilar atelectasis. Interstitial prominence in the lower lungs likely due to edema. No pneumothorax. Mild cardiomegaly with pulmonary vascular congestion. Degenerative changes of the spine. IMPRESSION: Mild cardiomegaly with pulmonary vascular congestion and small bilateral pleural effusions. Assessment and Plan Assessment and plan (1) Congestive heart failure: Problem comment: -acute on chronic worsening, preserved LV systolic function with evidence of mild mitral valve stenosis -increasing orthopnea and dyspnea on exertion, peripheral edema, weight gain of approximately 5 lb over the past couple of days, BNP 2130 -CT shows mild interlobular septal thickening within the apices and lung bases could represent mild pulmonary edema, possibly the basis of heart failure -CXR shows mild cardiomegaly with pulmonary vascular congestion -echocardiogram 01/2023 reviewed as above, indeterminate left ventricular diastolic function, EF 55-60% -continue IV diuresis as initiated in ED, Lasix 40 mg IV b.i.d., strict I&Os, daily weights -continue potassium supplement, adjusting dosing as necessary in setting of IV diuresis -2 g sodium diet -hold home Lasix 60 mg daily with plan to increase homegoing dose prior to discharge -most recent outpatient cardiology visit with [facility] reviewed from 04/02/2023 Status: Chronic (2) Pleural effusion: Problem comment: -CT shows moderate-sized loculated right pleural effusion and small left pleural effusion with associated passive atelectasis -ED provider discussed with Dr. Marie, General Surgery, who felt the pleural effusion is actually small, unable to be further assessed with thoracentesis. No concern for infection. Likely in setting of heart failure Status: Chronic (3) Bronchitis: Problem comment: -CT shows mild diffuse bronchial wall thickening, compatible with bronchitis -Afebrile without leukocytosis. No new or worsening cough. Will defer antibiotics at this time. Monitor for new or worsening symptoms. Status: Acute (4) Essential hypertension: Problem comment: -continue metoprolol, amlodipine Status: Chronic (5) Hyperlipidemia: Problem comment: -continue high-intensity statin Status: Chronic (6) CAD (coronary artery disease): Problem comment: -multi-vessel CAD, NSTEMI S/P CABG x 4V: MCALLISTER to LAD + NIKHIL to Cx + Radial to PVL + SVG to PDA, 07/03/22 -continue aspirin daily and amlodipine -in the ED, troponin negative, EKG shows NSR Status: Chronic (7) Enlarged lymph nodes: Problem comment: -incidental finding. Enlarged left prevascular and pretracheal lymph nodes, nonspecific, possibly reactive; however, metastatic disease from an unknown primary malignancy cannot be entirely excluded. Recommend attention on follow-up imaging -outpatient follow-up with PCP for further imaging as discussed with patient (he mentions h/o inflamed nodes) Status: Acute Plan CODE: Full as discussed with patient VTE PPX: Enoxaparin Disposition: Observation
--- NOTE | 2023-04-06 19:47 | ED.NURSE ---
Pt report given off to Cardiosonicgeno MAIDSON
[2023-04-06] MEDS: ENOXAPARIN 40 MG/0.4 ML INJ SUBCUT (21:25)
[2023-04-06] MEDS: SODIUM CHLORIDE 0.9 % (FLUSH) 10 ML SYRINGE 5 ML IVF (21:26)
[2023-04-06] MEDS: METOPROLOL TARTRATE 25 MG TABLET 37.5 MG PO (21:26)
[2023-04-07 02:14] VITALS: BP 108/56; PULSE 69; RESP 18; TEMP 36.7; O2SAT 95
--- NOTE | 2023-04-07 04:37 | PC.NURSE ---
Pt up ad bear in room. Voiding large amounts. No N/V. Afebrile. Tele NSR. Reporting zero pain. VS unremarkable.
[2023-04-07 06:42] LABS: Hematocrit 34.5 % (37.0-53.0); Hemoglobin* 11.3 gm/dL (13.5-17.5); Mean Corpuscular HGB Conc 33 gm/dL (32-36); Mean Corpuscular Hemoglobin 30 pg (26-34); Mean Corpuscular Volume 91 fL (80-100); Platelet Count* 265 K/uL (140-440); Red Blood Count 3.78 m/uL (4.30-5.90); White Blood Count* 7.55 K/uL (4.50-11.00)
[2023-04-07] MEDS: SODIUM CHLORIDE 0.9 % (FLUSH) 10 ML SYRINGE 5 ML IVF ×2 (06:46→08:46)
[2023-04-07] MEDS: FUROSEMIDE 10 MG/ML inj 40 MG IVP (06:46)
[2023-04-07 06:55] LABS: Slide Review Reflex No
[2023-04-07 06:56] LABS: Chloride* 99 mmol/L (96-114); Potassium* 3.6 mmol/L (3.6-5.1); Sodium* 135 mmol/L (135-149)
[2023-04-07 07:12] LABS: NT Pro B Type NatriureticPept* 2500 pg/mL
[2023-04-07] MEDS: POTASSIUM CHLORIDE 10 MEQ CAPSULE ER 20 MEQ PO (08:43)
[2023-04-07] MEDS: ROSUVASTATIN CALCIUM 10 MG TABLET 40 MG PO (08:43)
[2023-04-07] MEDS: METOPROLOL TARTRATE 25 MG TABLET 37.5 MG PO (08:44)
[2023-04-07 08:45] VITALS: BP 99/58; PULSE 65; PULSE 69; RESP 18; TEMP 36.8; O2SAT 93
[2023-04-07] MEDS: AMLODIPINE 5 MG TABLET 2.5 MG PO (08:45)
[2023-04-07] MEDS: ASPIRIN 81 MG TABLET EC PO (08:45)
--- NOTE | 2023-04-07 09:37 | NUTR.NU ---
RDN with nutrition screen related to 2gm sodium diet and CHF exacerbation. Patient admitted for CHF exacerbation. 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 Current diet 2 gm sodium. Patient was currently eating breakfast during visit. Weight 186 lbs; height 5ft 10in; BMI is 26.7 kg/m2. RDN visited with patient whom reports following a low sodium, heart healthy diet at home. He reports receiving diet education in the past related to this. He weighs himself daily and reports his usual body weight is about 183 lbs. Over the past year he has lost about 40 lbs, however he reports his weight is now stable. He says his weight lost was due to changes in his diet. RDN offered diet education related to CHF, however patient declined due to receiving this in the past. He did however accept educational materials. Handouts provided from [facility] on heart failure nutrition therapy, sodium content of foods, heart healthy label reading tips, sodium-free flavoring tips and heart healthy cooking and shopping tips. Patient verbalized understanding. RDN's contact information was provided and patient was encouraged to call with questions.
[2023-04-07 11:00] VITALS: BP 95/55; PULSE 62; RESP 20; TEMP 37; O2SAT 95
[2023-04-07 12:49] LABS: Anion Gap 10 mEq/L (7-15); Blood Urea Nitrogen* 11 mg/dL (7-30); Calcium* 8.9 mg/dL (8.4-10.6); Carbon Dioxide* 26 mmol/L (20-32); Creatinine* 0.7 mg/dL (0.5-1.5); Est. Creatinine Clearance* 75.03; Estimated Glomerular Filt Rate 102 ml/min; Glucose* 91 mg/dL (60-115)
--- NOTE | 2023-04-07 13:15 | PM.DS1 ---
DS: Providers Provider Date Seen: 04/07/23 Date of admission: 04/06/23 19:50 Primary care physician: Not a Local Provider Admitting Clinician: Jenn Collier PA-C Attending Physician on discharge: Yanira Schaeffer MD Date of Discharge: 04/07/23 DS: Diagnosis Discharge Diagnosis (1) Congestive heart failure: Status: Chronic Problem details: Patient has history of HFpEF with mitral stenosis. Follows with [facility] and was seen there for routine follow up on 04/02/23 and was felt to be at baseline with weight 188lbs. He has been taking Lasix 60mg daily and not missed any doses. Denies any recent dietary indiscretions, but does endorse alcohol use. Presented to ER with VITALE, orthopnea and weight gain. Work up consistent with acute decompensation of HFpEF. He was treated with IV lasix and had dramatic diuresis, back to baseline weight overnight. Feels significantly improved and now CTAB with minimal CHRIS. We discussed alcohol cessation as it may be a possible contributor. Also discussed increased lasix dosing. He has a history of overdiuresis with what sounds like metolazone in the past. I elected to increase his lasix dose to 80mg daily with close follow up for renal function and weight. BP is a little soft, but acceptable. Echo was not repeated this admission and there was no evidence of ACS. (2) CAD (coronary artery disease): Status: Chronic Problem details: -multi-vessel CAD, NSTEMI S/P CABG x 4V: MCALLISTER to LAD + NIKHIL to Cx + Radial to PVL + SVG to PDA, 07/03/22 -continue aspirin daily and amlodipine -in the ED, troponin negative, EKG shows NSR (3) Bronchitis: Status: Acute Problem details: -CT shows mild diffuse bronchial wall thickening, compatible with bronchitis -Afebrile without leukocytosis. No new or worsening cough. Will defer antibiotics at this time. Monitor for new or worsening symptoms. (4) Pleural effusion: Status: Chronic Problem details: -CT shows moderate-sized loculated right pleural effusion and small left pleural effusion with associated passive atelectasis -ED provider discussed with Dr. Marie, General Surgery, who felt the pleural effusion is actually small, unable to be further assessed with thoracentesis. No concern for infection. Likely in setting of heart failure (5) Enlarged lymph nodes: Status: Acute Problem details: -incidental finding. Enlarged left prevascular and pretracheal lymph nodes, nonspecific, possibly reactive; however, metastatic disease from an unknown primary malignancy cannot be entirely excluded. Recommend attention on follow-up imaging -outpatient follow-up with PCP for further imaging as discussed with patient (he mentions h/o inflamed nodes) (6) Essential hypertension: Status: Chronic Problem details: -continue metoprolol, amlodipine (7) Hyperlipidemia: Status: Chronic Problem details: -continue high-intensity statin DS: Summary Status at Discharge Functional status at discharge: independent ambulation Time Spent with Patient Time attestation: Total time spent providing and/or coordinating discharge services: Time spent: Greater than 30 minutes Exam Narrative: Exam Narrative: General: Well appearing, NAD HEENT: NCAT, MMM Resp: Diminished in bilateral bases, but otherwise CTAB CV: RRR, trace-1+ CHRIS Skin: warm and dry Const: Vital Signs, click to edit/add: Vital Signs - 24 hr 04/06/23 17:06 04/06/23 17:09 04/06/23 17:10 Temperature 99.3 F Pulse Rate 81 Pulse Rate [Pulse Oximeter] 82 Pulse Rate [Right Radial] Respiratory Rate 24 Blood Pressure 148/83 H Blood Pressure [Le ft Upper Arm] 148/83 H Blood Pressure [Ri ght Arm] Pulse Oximetry 97 97 96 Oxygen Delivery Me thod Room Air 04/06/23 17:10 04/06/23 17:26 04/06/23 17:27 Temperature Pulse Rate 85 80 81 Pulse Rate [Pulse Oximeter] Pulse Rate [Right Radial] Respiratory Rate Blood Pressure 131/67 Blood Pressure [Le ft Upper Arm] Blood Pressure [Ri ght Arm] Pulse Oximetry 98 96 96 Oxygen Delivery Me thod 04/06/23 17:30 04/06/23 17:31 04/06/23 17:32 Temperature Pulse Rate 78 77 76 Pulse Rate [Pulse Oximeter] Pulse Rate [Right Radial] Respiratory Rate Blood Pressure 128/63 Blood Pressure [Le ft Upper Arm] Blood Pressure [Ri ght Arm] Pulse Oximetry 95 96 96 Oxygen Delivery Me thod 04/06/23 17:47 04/06/23 17:49 04/06/23 18:00 Temperature Pulse Rate 84 76 Pulse Rate [Pulse Oximeter] Pulse Rate [Right Radial] Respiratory Rate 30 H Blood Pressure Blood Pressure [Le ft Upper Arm] Blood Pressure [Ri ght Arm] Pulse Oximetry 96 97 Oxygen Delivery Me thod 04/06/23 18:01 04/06/23 18:20 04/06/23 18:30 Temperature Pulse Rate 76 82 78 Pulse Rate [Pulse Oximeter] Pulse Rate [Right Radial] Respiratory Rate Blood Pressure 134/77 Blood Pressure [Le ft Upper Arm] Blood Pressure [Ri ght Arm] Pulse Oximetry 97 94 97 Oxygen Delivery Nd thod 04/06/23 18:35 04/06/23 18:43 04/06/23 18:44 Temperature 100.0 F H Pulse Rate 74 72 Pulse Rate [Pulse Oximeter] Pulse Rate [Right Radial] Respiratory Rate 24 Blood Pressure 135/61 Blood Pressure [Le ft Upper Arm] Blood Pressure [Ri ght Arm] Pulse Oximetry 97 [facility] 04[facility]/23 18:45 04/06/23 19:00 04/06/23 19:01 Temperature Pulse Rate 75 73 72 Pulse Rate [Pulse Oximeter] Pulse Rate [Right Radial] Respiratory Rate Blood Pressure 123/66 Blood Pressure [Le ft Upper Arm] Blood Pressure [Ri ght Arm] Pulse Oximetry 97 97 97 [facility] 04/06/23 19:15 04/06/23 19:30 04/06/23 19:31 Temperature Pulse Rate 72 73 71 Pulse Rate [Pulse Oximeter] Pulse Rate [Right Radial] Respiratory Rate Blood Pressure 122/60 Blood Pressure [Le ft Upper Arm] Blood Pressure [Ri ght Arm] Pulse Oximetry 96 96 96 [facility] 04/06/23 20:17 04/06/23 20:17 04/06/23 20:18 Temperature 98.2 F 98.2 F Pulse Rate Pulse Rate [Pulse Oximeter] Pulse Rate [Right Radial] 86 86 Respiratory Rate 20 20 20 Blood Pressure Blood Pressure [Le ft Upper Arm] Blood Pressure [Ri ght Arm] 149/81 H 149/81 H Pulse Oximetry 96 96 96 [facility] Room Air Room Air 04/06/23 21:04 04/06/23 21:19 04/06/23 22:30 Temperature 98.2 F Pulse Rate 76 Pulse Rate [Pulse Oximeter] Pulse Rate [Right Radial] 73 Respiratory Rate 20 20 Blood Pressure Blood Pressure [Le ft Upper Arm] Blood Pressure [Ri ght Arm] 126/75 Pulse Oximetry 96 95 Oxygen Delivery Me thod Room Air Room Air 04/06/23 22:32 04/07/23 02:14 04/07/23 08:45 Temperature 98.1 F Pulse Rate 69 Pulse Rate [Pulse Oximeter] Pulse Rate [Right Radial] 73 69 Respiratory Rate 20 18 Blood Pressure Blood Pressure [Le ft Upper Arm] Blood Pressure [Ri ght Arm] 108/56 L Pulse Oximetry 95 Oxygen Delivery Me thod Room Air 04/07/23 08:45 04/07/23 08:45 04/07/23 11:00 Temperature 98.2 F 98.6 F Pulse Rate Pulse Rate [Pulse Oximeter] Pulse Rate [Right Radial] 65 62 Respiratory Rate 18 18 20 Blood Pressure Blood Pressure [Le ft Upper Arm] Blood Pressure [Ri ght Arm] 99/58 L 95/55 L Pulse Oximetry 93 95 Oxygen Delivery Me thod Room Air Room Air DS: Data Data Completed and Pending Labs on day of discharge: Labs from last 24 hours 04/07/23 04/06/23 04/06/23 05:29 17:40 17:25 WBC 7.55 RBC 3.78 L Hgb 11.3 L Hct 34.5 L MCV 91 MCH 30 MCHC 33 RDW Coeff of Karen Plt Count 265 Neut % (Auto) Lymph % (Auto) [place] % (Auto) Eos % (Auto) Baso % (Auto) Neut # (Auto) Lymph # (Auto) [place] # (Auto) Eos # (Auto) Baso # (Auto) Abs Immat Gran (auto) Imm/Tot Granulo (auto) D-Dimer Quant (PE/DVT) Sodium 135 Potassium 3.6 Chloride 99 Carbon Dioxide 26 Anion Gap 10 BUN 11 Creatinine 0.7 Estimated Creat Clear 75.03 Estimated GFR 102 Glucose 91 Calcium 8.9 NT-Pro-B Natriuret Pep 2500 SARS-CoV-2 (PCR) Negative SARS-CoV-2 Influenza Type A (PCR) Negative PCR FLU A Influenza Type B (PCR) Negative PCR FLU B RSV (PCR) Negative PCR RSV POC Troponin I 0.00 L 04/06/23 17:22 WBC 10.23 RBC 4.15 L Hgb 12.4 L Hct 37.4 MCV 90 MCH 30 MCHC 33 RDW Coeff of Karen 12.7 Plt Count 293 Neut % (Auto) 76.5 H Lymph % (Auto) 14.8 L [place] % (Auto) 7.8 Eos % (Auto) 0.5 Baso % (Auto) 0.3 Neut # (Auto) 7.80 H Lymph # (Auto) 1.50 [place] # (Auto) 0.80 Eos # (Auto) 0.05 Baso # (Auto) 0.03 Abs Immat Gran (auto) 0.01 Imm/Tot Granulo (auto) 0.1 D-Dimer Quant (PE/DVT) 2.64 H Sodium 135 Potassium 3.8 Chloride 99 Carbon Dioxide 27 Anion Gap 9 BUN 12 Creatinine 0.8 Estimated Creat Clear Estimated GFR 98 Glucose 99 Calcium 9.1 NT-Pro-B Natriuret Pep 2130 SARS-CoV-2 (PCR) Influenza Type A (PCR) Influenza Type B (PCR) RSV (PCR) POC Troponin I Discharge Plan Discharge Disposition: Home, Self-Care Date of Admission: 04/06/23 19:50 Attending Provider on Discharge: Yanira Schaeffer Primary Care Provider: Provider,Not a Local Condition: Unchanged Anticipated Discharge Date/Time: 04/07/23 13:08 Discharge Medications: New furosemide 80 mg tablet 80 mg PO QAM Qty: 30 2RF Continued amlodipine 2.5 mg tablet 2.5 mg PO DAILY potassium chloride 20 mEq tablet,ER particles/crystals 20 meq PO DAILY nitroglycerin 0.4 mg tablet, sublingual 0.4 mg sublingual Q5M PRN (Reason: angina) rosuvastatin 40 mg tablet 40 mg PO DAILY metoprolol tartrate 25 mg tablet 37.5 mg PO BID aspirin 81 mg tablet,delayed release (DR/EC) 81 mg PO DAILY Discontinued furosemide 40 mg tablet 60 mg PO BID Discharge Orders: Discharge Order (Routine); Ordered 04/07/23 Ordered By: Yanira Schaeffer Patient Education: Heart Failure (DC) Additional Instructions: Patient should follow up with PCP within the week as he will need repeat labs in 3-4 days Activity Level: Activity as Tolerated Discharge Diet: Heart Healthy (2 gm sodium, low fat) Diet Detail: Recommend limiting/discontinuing alcohol consumption Follow Up Appointments: Provider,Not a Local [Primary Care Provider] - Forms: [facility] Info Instructions
--- NOTE | 2023-04-07 16:21 | PC.NURSE ---
Patient discharged home with son is stable condition. CHF education including but not limited to medication changes, weight measurement, diet, need for follow up primary care appointment completed at the time of discharge. Patient verbalized understanding. No further questions per patient at the time of discharge.
== END 2023-04-07 16:10 | disposition home or self-care (01) ==
LOC: ED 19:32 → MEDSURG 19:52
PROVIDERS: Admitting Provider Physician Assistant; Emergency Provider Emergency Medicine Emergency Medical Services; Visit Provider Physician Assistant
DX: I11.0 Hypertensive heart disease with heart failure (principal); I50.33 Acute on chronic diastolic (congestive) heart failure; R06.00 Dyspnea, unspecified; R06.01 Orthopnea; J20.9 Acute bronchitis, unspecified; J90 Pleural effusion, not elsewhere classified; R79.89 Other specified abnormal findings of blood chemistry; J98.11 Atelectasis; R07.89 Other chest pain; I25.10 Atherosclerotic heart disease of native coronary artery without angina pectoris; E78.5 Hyperlipidemia, unspecified; R59.9 Enlarged lymph nodes, unspecified; F10.90 Alcohol use, unspecified, uncomplicated; Z79.82 Long term (current) use of aspirin; Z96.659 Presence of unspecified artificial knee joint; Z87.39 Personal history of other diseases of the musculoskeletal system and connective tissue; Z86.718 Personal history of other venous thrombosis and embolism; Z86.79 Personal history of other diseases of the circulatory system; Z66 Do not resuscitate
CPT/HCPCS: 36415; 71046; 71275; 80048; 83880; 84484; 85025; 85027; 85379; 87631; 93005; 94761; 96372; 96374; 96376; 99284; 99285; G0378; A9270; J1650; J1940; Q9967

== ENCOUNTER 2023-05-10 16:17 | Emergency (ER) | payer MEDICARE, SELFPAY ==
[2023-05-10] VITALS (11 sets, daily range): BP systolic 114–122; BP diastolic 57–62; PULSE 66–77; RESP 22; TEMP 36.8; O2SAT 93–97; BMI 26.3
--- NOTE | 2023-05-10 16:42 | XR_ITS ---
Final Report Patient: NOE MCCORD Facility:?[facility] Patient ID:?[id number] Site Patient ID:?[id number]. Site :?[id number] Study:?XRay Chest 2V-05/10/2023 5:42:07 PM Ordering Physician:DANUTA Final Report: Indication: Shortness of breath Technique: Two views of the chest Comparison: Chest CT performed 04/06/2023 Findings: Bibasilar atelectasis and effusions. Favor no significant interval change with no new consolidative opacity appreciated. Unchanged cardiomegaly. No pneumothorax. Impression: Cardiomegaly with bibasilar atelectasis and pleural effusions, favored to be not significantly changed from prior chest CT. Dictated by Yanick Valencia MD @ 05/10/2023 7:38:23 PM (Electronic Signature)
--- NOTE | 2023-05-10 17:25 | ED_ITS ---
HPI - General Adult General Chief complaint: Shortness of Breath/Dyspnea Stated complaint: difficulty breathing Time Seen by Provider: 05/10/23 16:35 Source: patient Mode of arrival: ambulatory Limitations: no limitations History of Present Illness HPI narrative: 67-year-old male presenting today with shortness of breath that started this morning. He denies any fevers or chills. He is not coughing. Patient has a history of congestive heart failure after he suffered a heart attack resulting in a quadruple bypass in 2022. He states that he recently had a thoracentesis done in [place]. He is not sure what was pulled out of his lungs aside from just fluid. He is not having any chest pain. Shortness of breath is with exertion and with rest. He feels that his breathing is shallow and fast. He is not dizzy or lightheaded. He does not have a headache. Patient does state that he has gained 6 lbs in the last couple of days. Takes Lasix 80 mg once daily. Did take today's and yesterday's dose. Related Data Home Medications Medication Instructions Recorded Confirmed amlodipine 2.5 mg tablet 2.5 mg PO DAILY 04/06/23 05/10/23 metoprolol tartrate 25 mg tablet 37.5 mg PO BID 04/06/23 05/10/23 nitroglycerin 0.4 mg sublingual 0.4 mg sublingual Q5M PRN angina 04/06/23 04/07/23 tablet potassium chloride 20 mEq 20 meq PO DAILY 04/06/23 05/10/23 tablet,extended release(part/cryst) rosuvastatin 40 mg tablet 40 mg PO DAILY 04/06/23 05/10/23 aspirin 81 mg tablet,delayed 81 mg PO DAILY 04/07/23 05/10/23 release Previous Rx's Medication Instructions Recorded furosemide 80 mg tablet 80 mg PO QAM #30 tabs 04/07/23 Allergies Allergy/AdvReac Type Severity Reaction Status Date / Time No Known Drug Allergies Allergy Verified 05/10/23 16:26 Review of Systems Status of ROS: Reports: 10 or more systems reviewed and unremarkable except as noted in History and below [facility] Medical History Pleural effusion ?J90 - Pleural effusion, not elsewhere classified (ICD-10) NSTEMI (non-ST elevated myocardial infarction) ?I21.4 - Non-ST elevation (NSTEMI) myocardial infarction (ICD-10) CAD (coronary artery disease) ?I25.10 - Atherosclerotic heart disease of [place] coronary artery without angina pectoris (ICD-10) History of DVT (deep vein thrombosis) ?Z86.718 - Personal history of other venous thrombosis and embolism (ICD-10) Essential hypertension ?I10 - Essential (primary) hypertension (ICD-10) Hyperlipidemia ?E78.5 - Hyperlipidemia, unspecified (ICD-10) Surgical History History of total knee arthroplasty ?Z96.659 - Presence of unspecified artificial knee joint (ICD-10) Social History Narrative: Patient lives on his son Yogesh good and is retired. Mark would be medical decision maker if needed. He requests DNR/DNI status. He is a never smoker, drinks >10 alcoholic beverages per week, primarily on the weekends. No history of withdrawal. What is your current living situation?: I presently have a place to live Problems where you live: no known problems Problems where you live details: None In the past 12 months, utilities in danger of being shut off: no In past 12 months, lack of transportation kept you from medical appts, meetings, work, or getting things needed for daily living: no In the past 12 mos, have been you worried that your food would run out before you had money to buy more?: never true In the past 12 mos, the food you bought just didn't last and you didn't have money to buy more?: never true Highest level of school completed/degree received: some college, no degree Smoking Status: Never smoker Do you use any of these nicotine containing products: None Second hand tobacco smoke exposure: No How often do you have a drink containing alcohol: never How many standard drinks containing alcohol do you have on a typical day: 3 or 4 How often do you have six or more drinks on one occasion: Never AUDIT-C Alcohol total score: 1 Non-prescribed substance use: denies use Caffeine: Yes (Pepsi) How often does anyone, including family, friends and others, physically hurt you : never How often does anyone, including family, friends and others, insult or talk down to you: never How often does anyone, including family, friends and others, threaten you with harm: never How often does anyone, including family, friends and others, scream or curse at you: never service: No Exam Narrative: Exam Narrative: Well-nourished well-developed patient, mildly tachypneic Alert and oriented. Answers questions appropriately. Mood and affect are appropriate. Thoughts are goal oriented and rational. No tangential or magical thinking noted. HEENT: Normocephalic atraumatic. Pupils are equally round reactive to light. Extraocular muscles are intact. Conjunctivae are moist without any icterus noted. Moist mucous membranes. Posterior pharynx is normal. Neck is soft without any lymphadenopathy or thyromegaly. No masses are appreciated. Cardiovascular: Heart is regular rate and rhythm S1 and S2 are present without any murmurs. Lungs: Very mild crackles in the right lower base, otherwise clear to auscultation bilaterally. Abdomen: Soft and nontender nondistended with normal bowel sounds. No guarding or rebound. Extremities: Bilateral lower extremities show 2+ pitting edema. Normal DP and PT pulses. Skin: Well perfused without any obvious rashes. Const: Vital Signs, click to edit/add: Vital Signs - 24 hr 05/10/23 16:24 05/10/23 16:51 05/10/23 17:12 Temperature 98.2 F Pulse Rate 74 68 Pulse Rate [Pulse Oximeter] 68 Respiratory Rate 22 Blood Pressure Blood Pressure [Ri ght Upper Arm] 114/58 L Pulse Oximetry 97 97 93 Oxygen Delivery Me thod Room Air 05/10/23 17:15 05/10/23 17:30 05/10/23 17:32 Temperature Pulse Rate 69 70 77 Pulse Rate [Pulse Oximeter] Respiratory Rate Blood Pressure 116/57 L Blood Pressure [Ri ght Upper Arm] Pulse Oximetry 97 96 96 Oxygen Delivery Me thod 05/10/23 17:45 05/10/23 18:00 05/10/23 18:02 Temperature Pulse Rate 73 70 Pulse Rate [Pulse Oximeter] Respiratory Rate Blood Pressure Blood Pressure [Ri ght Upper Arm] Pulse Oximetry 96 96 95 Oxygen Delivery Me thod 05/10/23 18:02 05/10/23 18:03 05/10/23 18:15 Temperature Pulse Rate 68 66 67 Pulse Rate [Pulse Oximeter] Respiratory Rate Blood Pressure 122/62 Blood Pressure [Ri ght Upper Arm] Pulse Oximetry 97 96 97 Oxygen Delivery Me thod Course Course ED Course: EKG, read by me, shows normal sinus rhythm with premature atrial complexes, pulse is 65. Normal troponin. CBC is unremarkable, showing mild anemia with a hemoglobin of 12 which appears to be stable. Chemistries and LFTs are unremarkable. CRP is 1. BNP is 2330. Triple swab is negative. Patient received 80 mg of IV Lasix while he was here. He has gone to the bathroom about 4 times since his Lasix dose. He states that he does feel better at rest but continues to be short of breath with minimal exertion such as walking to the bathroom. I had the opportunity to discuss the patient with Dr. Kemp who was able to review his records from [facility]. It appears the patient has had some chronic shortness of breath issues and has been worked up quite extensively. He has an appoint with pulmonology coming up this . I was also able to compare patient's current chest x-ray with previous CT scan there was not a significant change there, he does have bilateral small pleural effusions. His BNP is unchanged from previous visits and his weight is actually down from previous visit. I discussed hospitalization versus going home with the patient bed he does feel that going home would be manageable. He has does state that he would feels more comfortable in the hospital however. We discussed that while that might be the case, I do not think that he is in acute congestive heart failure exacerbation and that I think that going home at this time is the best option. Patient stated that he understood. Of note, when I am talking with the patient and he is lying in bed not exerting himself, his respiratory rate is 16. Vital Signs Vital signs: Initial Vital Signs Temperature 98.2 F 05/10/23 16:24 Temperature Source Temporal Artery Scan 05/10/23 16:24 Pulse Rate 68 05/10/23 16:24 Respiratory Rate 22 05/10/23 16:24 Blood Pressure 114/58 L 05/10/23 16:24 Blood Pressure Mean 76 05/10/23 16:24 Blood Pressure Position Semi-Fowlers 05/10/23 16:24 Pulse Oximetry 97 05/10/23 16:24 Oxygen Delivery Method Room Air 05/10/23 16:24 Vital Signs Temperature 98.2 F 05/10/23 16:24 Pulse Rate 68 05/10/23 16:24 Respiratory Rate 22 05/10/23 16:24 Blood Pressure 114/58 L 05/10/23 16:24 Pulse Oximetry 97 05/10/23 16:24 Oxygen Delivery Method Room Air 05/10/23 16:24 Temperature 98.2 F 05/10/23 16:24 Pulse Rate 67 05/10/23 18:15 Respiratory Rate 22 05/10/23 16:24 Blood Pressure 122/62 05/10/23 18:02 Pulse Oximetry 97 05/10/23 18:15 Oxygen Delivery Method Room Air 05/10/23 16:24 Medications Administered Medications: Discontinued Medications Generic Name Dose Route Start Last Admin Trade Name Freq PRN Reason Stop Dose Admin Furosemide 80 mg 05/10/23 18:09 05/10/23 18:24 Furosemide 10 Mg/Ml Inj IVP 05/10/23 18:10 80 mg ONCE ONE Administration Medical Decision Making [facility] Narrative Medical decision making narrative: 67-year-old male with history of coronary artery disease congestive heart failure. Presenting with shortness of breath is largely unchanged from his baseline. Recommend follow-up with primary care provider and technology project manager as scheduled. Medical Records Medical records reviewed: Yes I reviewed the patient's medical records Lab Data Lab results reviewed: Yes I reviewed the patient's lab results Labs: Lab Results 05/10/23 05/10/23 Range/Units 17:05 17:10 WBC 6.59 (4.50-11.00) K/uL RBC 3.99 L (4.30-5.90) m/uL Hgb 12.0 L (13.5-17.5) gm/dL Hct 36.3 L (37.0-53.0) % MCV 91 (80-100) fL MCH 30 (26-34) pg MCHC 33 (32-36) gm/dL RDW Coeff of Karen 13.2 (11.5-15.5) % Plt Count 264 (140-440) K/uL Neut % (Auto) 63.5 (42.0-72.0) % Lymph % (Auto) 25.5 (20-44) % [place] % (Auto) 8.8 (0.0-11.0) % Eos % (Auto) 1.7 (0.0-7.0) % Baso % (Auto) 0.3 (0.0-3.0) % Neut # (Auto) 4.19 (1.7-7.0) K/uL Lymph # (Auto) 1.68 (0.90-2.90) K/uL [place] # (Auto) 0.60 (0.00-0.90) K/UL Eos # (Auto) 0.11 (0.00-0.50) K/uL Baso # (Auto) 0.02 (0.00-0.30) K/uL Abs Immat Gran (auto) 0.01 (0.00-0.30) K/uL Imm/Tot Granulo (auto) 0.2 % Sodium 136 (135-149) mmol/L Potassium 3.8 (3.6-5.1) mmol/L Chloride 99 (96-114) mmol/L Carbon Dioxide 30 (20-32) mmol/L Anion Gap 7 (7-15) mEq/L BUN 15 (7-30) mg/dL Creatinine 0.8 (0.5-1.5) mg/dL Estimated Creat Clear 75.03 Estimated GFR 98 ml/min Glucose 97 (60-115) mg/dL Lactate 1.1 (0.5-1.9) mmol/L Calcium 9.1 (8.4-10.6) mg/dL Total Bilirubin 0.8 (0.1-1.5) mg/dL Direct Bilirubin 0.3 (0.0-0.5) mg/dL AST 22 (12-35) U/L ALT 9 (4-50) U/L Alkaline Phosphatase 113 (40-150) U/L Troponin I < 0.01 L (0.01-0.04) ng/mL C-Reactive Protein 1.0 (0.5-1.0) mg/dL NT-Pro-B Natriuret Pep 2330 pg/mL Total Protein 8.3 (6.0-8.3) g/dL Albumin 4.0 (3.3-5.0) g/dL SARS-CoV-2 (PCR) Negative SARS-CoV-2 (Negative) Influenza Type A (PCR) Negative PCR FLU A (Negative) Influenza Type B (PCR) Negative PCR FLU B (Negative) RSV (PCR) Negative PCR RSV (Negative) POC Troponin I 0.01 (0.01-0.04) ng/ml Imaging Data Chest x-ray: Attestation: I have reviewed the pertinent imaging results. Radiologist's impression: Technique: Two views of the chest Comparison: Chest CT performed 04/06/2023 Findings: Bibasilar atelectasis and effusions. Favor no significant interval change with no new consolidative opacity appreciated. Unchanged cardiomegaly. No pneumothorax. Impression: Cardiomegaly with bibasilar atelectasis and pleural effusions, favored to be not significantly changed from prior chest CT. ECG Data Attestation: I personally reviewed and interpreted this ECG as follows: Discharge Plan Discharge Clinical Impression: Breath shortness Patient Disposition: Home, Self-Care Condition: Stable Additional Instructions: Continue to monitor daily weights. Follow-up with your primary care provider and technology project manager as scheduled. Return to the ER if you feel like your symptoms are getting worse. Prescriptions: No Action amlodipine 2.5 mg tablet 2.5 mg PO DAILY potassium chloride 20 mEq tablet,ER particles/crystals 20 meq PO DAILY nitroglycerin 0.4 mg tablet, sublingual 0.4 mg sublingual Q5M PRN (Reason: angina) rosuvastatin 40 mg tablet 40 mg PO DAILY metoprolol tartrate 25 mg tablet 37.5 mg PO BID aspirin 81 mg tablet,delayed release (DR/EC) 81 mg PO DAILY furosemide 80 mg tablet 80 mg PO QAM Qty: 30 2RF Follow Up/Referrals: Provider,Not a Local [Primary Care Provider] - Stand Alone Forms: [employer] Info Instructions
[2023-05-10 17:29] LABS: Lactate* 1.1 mmol/L (0.5-1.9)
[2023-05-10 17:29] LABS: Troponin, Point-of-Care* 0.01 ng/ml (0.01-0.04)
[2023-05-10 17:30] LABS: Basophils Absolute Auto 0.02 K/uL (0.00-0.30); Basophils Percent Auto 0.3 % (0.0-3.0); Eosinophils Absolute Auto 0.11 K/uL (0.00-0.50); Eosinophils Percent Auto 1.7 % (0.0-7.0); Hematocrit 36.3 % (37.0-53.0); Immature Granulocytes Abs Auto 0.01 K/uL (0.00-0.30); Immature Granulocytes Pct Auto 0.2 %; Lymphocytes Absolute Auto 1.68 K/uL (0.90-2.90); Lymphocytes Percent Auto 25.5 % (20-44); Mean Corpuscular HGB Conc 33 gm/dL (32-36); Mean Corpuscular Hemoglobin 30 pg (26-34); Mean Corpuscular Volume 91 fL (80-100); Monocytes Percent Auto 8.8 % (0.0-11.0); Neutrophils Absolute Auto 4.19 K/uL (1.7-7.0); Neutrophils Percent Auto 63.5 % (42.0-72.0); Platelet Count* 264 K/uL (140-440); RDW Coefficient of Variation % 13.2 % (11.5-15.5); Red Blood Count 3.99 m/uL (4.30-5.90); White Blood Count* 6.59 K/uL (4.50-11.00)
[2023-05-10 17:32] LABS: Slide Review Reflex No
[2023-05-10 18:00] LABS: Chloride* 99 mmol/L (96-114)
[2023-05-10 18:01] LABS: Potassium* 3.8 mmol/L (3.6-5.1); Sodium* 136 mmol/L (135-149)
[2023-05-10 18:03] LABS: Alkaline Phosphatase* 113 U/L (40-150); Anion Gap 7 mEq/L (7-15); Aspartate Amino Transferase* 22 U/L (12-35); Bilirubin Direct* 0.3 mg/dL (0.0-0.5); Bilirubin Total* 0.8 mg/dL (0.1-1.5); Blood Urea Nitrogen* 15 mg/dL (7-30); Carbon Dioxide* 30 mmol/L (20-32); Creatinine* 0.8 mg/dL (0.5-1.5); Est. Creatinine Clearance* 75.03; Estimated Glomerular Filt Rate 98 ml/min; Glucose* 97 mg/dL (60-115); Total Protein* 8.3 g/dL (6.0-8.3)
[2023-05-10 18:04] LABS: Alanine Aminotransferase* 9 U/L (4-50); Calcium* 9.1 mg/dL (8.4-10.6)
[2023-05-10 18:13] LABS: PCR FLU A Negative PCR FLU A (Negative); PCR FLU B Negative PCR FLU B (Negative); PCR RSV Negative PCR RSV (Negative); SARS PCR* Negative SARS-CoV-2 (Negative)
[2023-05-10 18:14] LABS: NT Pro B Type NatriureticPept* 2330 pg/mL
[2023-05-10 18:22] LABS: Troponin I* < 0.01 ng/mL (0.01-0.04)
[2023-05-10] MEDS: FUROSEMIDE 10 MG/ML inj 80 MG IVP (18:24)
== END 2023-05-10 20:13 | disposition home or self-care (01) ==
PROVIDERS: Emergency Provider Family Medicine
DX: R06.02 Shortness of breath (principal)
CPT/HCPCS: 36415; 71046; 80048; 80076; 83605; 83880; 84484; 85025; 86140; 87631; 93005; 94761; 96374; 99284; 99285; J1940